=== PATIENT | male | born 1940 | race Caucasian/White ===

== ENCOUNTER → 2023-08-27 10:14 | Outpatient (REF) | payer MEDICARE, BC, SELFPAY ==
[2023-08-27 10:46] LABS: % Basophils 0.8 % (0-2); % Eosinophils 4.6 % (0-6); % Immature Granulocytes 0.2 % (0-0.5); % Lymphocytes 21.5 % (20.5-51.1); % Monocytes 9.1 % (1.7-9.3); % Neutrophils 63.8 % (42.2-75.2); Absolute Basophils 0.1 10^3/uL (0-0.2); Absolute Eosinophils 0.3 10^3/uL (0-0.7); Absolute Lymphocytes 1.3 10^3/uL (1.2-3.4); Absolute Monocytes 0.6 10^3/uL (0.1-0.6); Absolute Neutrophils 3.9 10^3/uL (1.4-6.5); Hematocrit 30.3 % (39.0-52.0); Hemoglobin 10.7 g/dL (13.0-18.0); Mean Corp Hgb Conc. 35.3 g/dL (33.0-37.0); Mean Corpuscular Hgb 33.8 pg (27.0-31.0); Mean Corpuscular Volume 95.6 fL (80.0-94.0); Mean Platelet Volume 9.6 fL (7.4-10.4); Nucleated Red Blood Cells % 0 % (-); Platelet Count 198 10^3/uL (130-400); Red Blood Cell Count 3.17 10^6/uL (4.70-6.10); Red Cell Dist. Width 11.8 % (11.5-14.5); White Blood Cell Count 6.2 10^3/uL (4.8-10.8)
[2023-08-27 11:12] LABS: ALT (SGPT) 21 U/L (0-50); AST (SGOT) 25 U/L (17-59); Albumin 3.5 g/dl (3.5-5.0); Alkaline Phosphatase 52 U/L (38-126); Blood Urea Nitrogen 7 mg/dl (9-20); Calcium 9.4 mg/dl (8.4-10.2); Carbon Dioxide 29 mmol/L (22-30); Chloride 100 mmol/L (98-107); Glucose 107 mg/dl (70-99); Potassium 4.4 mmol/L (3.5-5.1); Sodium 130 mmol/L (135-145); Total Bilirubin 0.6 mg/dl (0.2-1.3); Total Protein 6.3 g/dl (6.3-8.2); eGFR > 60.00
[2023-08-27 11:39] LABS: Testosterone, Total 49.9 ng/dl (72-623)
[2023-08-27 13:11] LABS: Glycohemoglobin (HgbA1c) 6.5 % (4.0-5.6)
== END ==
LOC: REG 10:14
PROVIDERS: ATTENDING PHYSICIAN Internal Medicine
DX: E10.39 Type 1 diabetes mellitus with other diabetic ophthalmic complication (principal); D64.9 Anemia, unspecified; C61 Malignant neoplasm of prostate
CPT/HCPCS: 36415; 80053; 83036; 84403; 85025

== ENCOUNTER → 2023-09-11 14:41 | Outpatient (REF) | payer MEDICARE, BC, SELFPAY ==
[2023-09-11 16:53] LABS: PSA, Total - Diagnostic < 0.06 ng/ml (0.0-4.0)
== END ==
LOC: REG 14:41
PROVIDERS: ATTENDING PHYSICIAN Radiology Radiation Oncology; FAMILY PHYSICIAN Internal Medicine
DX: C61 Malignant neoplasm of prostate (principal)
CPT/HCPCS: 36415; 84153

== ENCOUNTER → 2023-10-23 16:29 | Outpatient (REF) | payer MEDICARE, BC, SELFPAY | LOC: RAD 16:29 | PROVIDERS: ATTENDING PHYSICIAN Internal Medicine | DX: R05.1 Acute cough (principal); R09.89 Other specified symptoms and signs involving the circulatory and respiratory systems | CPT/HCPCS: 71046 ==

== ENCOUNTER → 2023-10-25 17:03 | Outpatient (REF) | payer MEDICARE, BC, SELFPAY | LOC: RAD 17:03 | PROVIDERS: ATTENDING PHYSICIAN Nurse Practitioner Adult Health | DX: M54.2 Cervicalgia (principal); W19.XXXD Unspecified fall, subsequent encounter | CPT/HCPCS: 72040 ==

== ENCOUNTER → 2023-12-31 07:55 | Outpatient (REF) | payer MEDICARE, BC, SELFPAY ==
[2023-12-31 09:03] LABS: % Basophils 0.6 % (0-2); % Eosinophils 7.4 % (0-6); % Immature Granulocytes 0.2 % (0-0.5); % Lymphocytes 31.9 % (20.5-51.1); % Monocytes 10.4 % (1.7-9.3); % Neutrophils 49.5 % (42.2-75.2); Absolute Eosinophils 0.4 10^3/uL (0-0.7); Absolute Lymphocytes 1.5 10^3/uL (1.2-3.4); Absolute Monocytes 0.5 10^3/uL (0.1-0.6); Absolute Neutrophils 2.3 10^3/uL (1.4-6.5); Hematocrit 30.7 % (39.0-52.0); Hemoglobin 10.9 g/dL (13.0-18.0); Mean Corp Hgb Conc. 35.5 g/dL (33.0-37.0); Mean Corpuscular Hgb 32.7 pg (27.0-31.0); Mean Corpuscular Volume 92.2 fL (80.0-94.0); Mean Platelet Volume 10.9 fL (7.4-10.4); Nucleated Red Blood Cells % 0 % (-); Platelet Count 161 10^3/uL (130-400); Red Blood Cell Count 3.33 10^6/uL (4.70-6.10); Red Cell Dist. Width 12.2 % (11.5-14.5); White Blood Cell Count 4.7 10^3/uL (4.8-10.8)
[2023-12-31 09:44] LABS: ALT (SGPT) 22 U/L (0-50); AST (SGOT) 26 U/L (17-59); Albumin 3.5 g/dl (3.5-5.0); Alkaline Phosphatase 58 U/L (38-126); Blood Urea Nitrogen 7 mg/dl (9-20); Carbon Dioxide 27 mmol/L (22-30); Chloride 97 mmol/L (98-107); Glucose 148 mg/dl (70-99); Potassium 4.7 mmol/L (3.5-5.1); Sodium 130 mmol/L (135-145); Total Bilirubin 0.5 mg/dl (0.2-1.3); Total Protein 6.4 g/dl (6.3-8.2); eGFR > 60.00
[2023-12-31 10:16] LABS: Glycohemoglobin (HgbA1c) 6.9 % (4.0-5.6)
== END ==
LOC: REG 07:55
PROVIDERS: ATTENDING PHYSICIAN Internal Medicine
DX: E10.39 Type 1 diabetes mellitus with other diabetic ophthalmic complication (principal); K22.719 Barrett's esophagus with dysplasia, unspecified; D64.9 Anemia, unspecified; C61 Malignant neoplasm of prostate
CPT/HCPCS: 36415; 80053; 83036; 85025

== ENCOUNTER → 2024-05-05 09:29 | Outpatient (REF) | payer MEDICARE, BC, SELFPAY ==
[2024-05-05 10:52] LABS: % Basophils 0.4 % (0-2); % Eosinophils 4.5 % (0-6); % Immature Granulocytes 0.4 % (0-0.5); % Lymphocytes 22.8 % (20.5-51.1); % Monocytes 9.8 % (1.7-9.3); % Neutrophils 62.1 % (42.2-75.2); Absolute Eosinophils 0.2 10^3/uL (0-0.7); Absolute Lymphocytes 1.2 10^3/uL (1.2-3.4); Absolute Monocytes 0.5 10^3/uL (0.1-0.6); Absolute Neutrophils 3.3 10^3/uL (1.4-6.5); Hematocrit 30.3 % (39.0-52.0); Hemoglobin 10.4 g/dL (13.0-18.0); Mean Corp Hgb Conc. 34.3 g/dL (33.0-37.0); Mean Corpuscular Hgb 31.9 pg (27.0-31.0); Mean Corpuscular Volume 92.9 fL (80.0-94.0); Nucleated Red Blood Cells % 0 % (-); Platelet Count 218 10^3/uL (130-400); Red Blood Cell Count 3.26 10^6/uL (4.70-6.10); Red Cell Dist. Width 12.5 % (11.5-14.5); White Blood Cell Count 5.3 10^3/uL (4.8-10.8)
[2024-05-05 11:35] LABS: Glycohemoglobin (HgbA1c) 6.5 % (4.0-5.6)
[2024-05-05 11:50] LABS: ALT (SGPT) 25 U/L (0-50); AST (SGOT) 26 U/L (17-59); Albumin 3.7 g/dl (3.5-5.0); Alkaline Phosphatase 45 U/L (38-126); Blood Urea Nitrogen 8 mg/dl (9-20); Calcium 9.9 mg/dl (8.4-10.2); Carbon Dioxide 30 mmol/L (22-30); Chloride 93 mmol/L (98-107); Glucose 135 mg/dl (70-99); HDL Cholesterol 55 mg/dl; LDL Cholesterol, Calculated 57 mg/dl; Potassium 4.8 mmol/L (3.5-5.1); Sodium 131 mmol/L (135-145); Total Bilirubin 0.3 mg/dl (0.2-1.3); Total Cholesterol 122 mg/dl (50-199); Total Protein 6.3 g/dl (6.3-8.2); Triglyceride 52 mg/dl (10-149); Very Low Density Lipoprotein 10 mg/dl (0-30); eGFR > 60.00
[2024-05-05 20:39] LABS: PSA, Total - Diagnostic < 0.06 ng/ml (0.0-4.0); TSH Reflex To Free T4 1.53 uIU/ml (0.47-4.68)
[2024-05-05 20:40] LABS: Testosterone, Total 77.8 ng/dl (72-623)
== END ==
LOC: REG 09:29
PROVIDERS: ATTENDING PHYSICIAN Radiology Radiation Oncology; FAMILY PHYSICIAN Internal Medicine; OTHER PHYSICIAN Internal Medicine Hematology & Oncology
DX: C61 Malignant neoplasm of prostate (principal); D64.9 Anemia, unspecified; Z85.46 Personal history of malignant neoplasm of prostate; Z85.51 Personal history of malignant neoplasm of bladder; K59.00 Constipation, unspecified; R53.83 Other fatigue; E10.39 Type 1 diabetes mellitus with other diabetic ophthalmic complication; K22.719 Barrett's esophagus with dysplasia, unspecified; I25.10 Atherosclerotic heart disease of native coronary artery without angina pectoris; R79.89 Other specified abnormal findings of blood chemistry
CPT/HCPCS: 36415; 80053; 80061; 83036; 84153; 84403; 84443; 85025

== ENCOUNTER → 2024-05-07 12:49 | Outpatient (REF) | payer MEDICARE, BC, SELFPAY | LOC: RAD 12:49 | PROVIDERS: ATTENDING PHYSICIAN Surgery; FAMILY PHYSICIAN Internal Medicine | DX: C67.0 Malignant neoplasm of trigone of bladder (principal) | CPT/HCPCS: 76770 ==

== ENCOUNTER → 2024-12-25 10:13 | Outpatient (REF) | payer MEDICARE, BC, SELFPAY ==
[2024-12-25 11:17] LABS: % Basophils 0.6 % (0-2); % Eosinophils 2.6 % (0-6); % Immature Granulocytes 0.1 % (0-0.5); % Lymphocytes 21.2 % (20.5-51.1); % Monocytes 11.3 % (1.7-9.3); % Neutrophils 64.2 % (42.2-75.2); Absolute Eosinophils 0.2 10^3/uL (0-0.7); Absolute Lymphocytes 1.5 10^3/uL (1.2-3.4); Absolute Monocytes 0.8 10^3/uL (0.1-0.6); Absolute Neutrophils 4.5 10^3/uL (1.4-6.5); Hemoglobin 11.1 g/dL (13.0-18.0); Mean Corp Hgb Conc. 35.8 g/dL (33.0-37.0); Mean Corpuscular Hgb 33.5 pg (27.0-31.0); Mean Corpuscular Volume 93.7 fL (80.0-94.0); Mean Platelet Volume 9.9 fL (7.4-10.4); Nucleated Red Blood Cells % 0 % (-); Platelet Count 249 10^3/uL (130-400); Red Blood Cell Count 3.31 10^6/uL (4.70-6.10); Red Cell Dist. Width 11.8 % (11.5-14.5)
[2024-12-25 11:50] LABS: ALT (SGPT) 23 U/L (0-50); AST (SGOT) 28 U/L (17-59); Albumin 3.8 g/dl (3.5-5.0); Alkaline Phosphatase 45 U/L (38-126); Blood Urea Nitrogen 7 mg/dl (9-20); Calcium 9.9 mg/dl (8.4-10.2); Carbon Dioxide 29 mmol/L (22-30); Chloride 96 mmol/L (98-107); Glucose 109 mg/dl (70-99); Potassium 3.9 mmol/L (3.5-5.1); Sodium 129 mmol/L (135-145); Total Bilirubin 0.6 mg/dl (0.2-1.3); Total Protein 6.4 g/dl (6.3-8.2); eGFR > 60.00
[2024-12-25 12:17] LABS: TSH Reflex To Free T4 1.71 uIU/ml (0.47-4.68)
[2024-12-25 12:28] LABS: Glycohemoglobin (HgbA1c) 6.4 % (4.0-5.6)
[2024-12-25 16:26] LABS: Folate 9.5 ng/ml (2.76-20); Vitamin B12 > 1000 pg/ml (239-931)
== END ==
LOC: REG 10:13
PROVIDERS: ATTENDING PHYSICIAN Internal Medicine; OTHER PHYSICIAN Internal Medicine; OTHER PHYSICIAN Internal Medicine Cardiovascular Disease
DX: E10.39 Type 1 diabetes mellitus with other diabetic ophthalmic complication (principal); R43.2 Parageusia; R63.4 Abnormal weight loss; D53.8 Other specified nutritional anemias; F03.90 Unspecified dementia, unspecified severity, without behavioral disturbance, psychotic disturbance, mood disturbance, and anxiety
CPT/HCPCS: 36415; 80053; 82607; 82746; 83036; 84443; 85025

== ENCOUNTER 2024-12-29 15:39 | Emergency (ER) | payer MEDICARE, BC, SELFPAY ==
[2024-12-29 15:42] VITALS: BP 106/57
[2024-12-29 16:03] LABS: % Basophils 0.4 % (0-2); % Eosinophils 0.8 % (0-6); % Immature Granulocytes 0.4 % (0-0.5); % Lymphocytes 14.4 % (20.5-51.1); % Monocytes 9.4 % (1.7-9.3); % Neutrophils 74.6 % (42.2-75.2); Absolute Eosinophils 0.1 10^3/uL (0-0.7); Absolute Monocytes 0.7 10^3/uL (0.1-0.6); Absolute Neutrophils 5.3 10^3/uL (1.4-6.5); Hematocrit 30.5 % (39.0-52.0); Mean Corp Hgb Conc. 36.1 g/dL (33.0-37.0); Mean Corpuscular Hgb 33.8 pg (27.0-31.0); Mean Corpuscular Volume 93.8 fL (80.0-94.0); Mean Platelet Volume 9.4 fL (7.4-10.4); Nucleated Red Blood Cells % 0 % (-); Platelet Count 240 10^3/uL (130-400); Red Blood Cell Count 3.25 10^6/uL (4.70-6.10); Red Cell Dist. Width 11.8 % (11.5-14.5); White Blood Cell Count 7.1 10^3/uL (4.8-10.8)
[2024-12-29 16:19] LABS: ALT (SGPT) 27 U/L (0-50); AST (SGOT) 25 U/L (17-59); Albumin 3.9 g/dl (3.5-5.0); Alkaline Phosphatase 48 U/L (38-126); Blood Urea Nitrogen 12 mg/dl (9-20); Calcium 9.8 mg/dl (8.4-10.2); Carbon Dioxide 30 mmol/L (22-30); Chloride 91 mmol/L (98-107); Glucose 217 mg/dl (70-99); Potassium 3.9 mmol/L (3.5-5.1); Sodium 127 mmol/L (135-145); Total Bilirubin 0.7 mg/dl (0.2-1.3); Total Protein 6.5 g/dl (6.3-8.2); eGFR > 60.00
[2024-12-29 16:20] LABS: Lipase 56 U/L (23-300)
--- NOTE | 2024-12-29 17:22 | ED.GENMED ---
History of Present Illness
General
Chief Complaint: Failure to Thrive
Source: patient and family
Exam Limitations: none
Time Seen by Provider: 12/29/24 16:56
History of Present Illness
History of Present Illness:
84yoM with a history of coronary artery disease, insulin dependent diabetes, hypertension, hyperlipidemia, Serrano's esophagus presenting for evaluation of multiple complaints. Patient's daughter in September of this year. This is his second
daughter that within the past 2 years. He has had a decline in health over the past 3 months since this occurred. states he is not eating as much and has lost about 15 pounds. Patient reports that food does not taste the same
anymore. He has also been experiencing abdominal discomfort and belching. states he will moan intermittently reporting abdominal pain. He has also been less active. He works with PT twice weekly and seemed to be more weak today during his
session. He was seen by his PCP last week and was told that his blood work looked good. is worried that he may have dementia.
Past History
Past History
ED Past Medical History: HTN, Hypercholesterolemia, IDDM and [place]
ED Past Surgical History: Cardiac and Other
Patient has exhibited threatening behavior?: No
Social History
Tobacco: Former smoker
Alcohol: None
Drug: None
Personal:
Living: with family
Employment: Retired
Phy Exam
General Physical Exam
General Presentation: well appearing and no apparent distress
General Skin: warm and dry
General Habitus: normal and elderly
General Mental: alert
Cardiovascular Exam
Cardiovascular Exam: regular rate/rhythm
Pulmonary Exam
Pulmonary Exam: lungs clear, no respiratory distress, no rales, no crackles, no rhonchi and no wheezing
Gastrointestinal Exam
Gastrointestinal Exam: non tender, soft and non distended
Neurological Exam
Neurological Exam: alert
Issa Coma Scale
Eye Opening: Spontaneous
Verbal Response: Oriented
Motor Response: Obeys Commands
GCS Total Score: 15
Skin Exam
Skin Exam: normal color and warm/dry
Psychiatric Exam
Psychiatric Exam: normal mood/affect
Course
Orders/Labs/Results
Orders:
Orders
12/29/24 15:48
Complete Blood Count/With Diff Urgent
Comprehensive Metabolic Panel Urgent
Lipase Urgent
TSH Urgent
Comment: ADD ON
12/29/24 17:16
Add On- LAB Urgent
Tests Added?: TSH
CT Abd/pelvis W Iv Cont Urgent
Comment:
Reason For Exam: abd pain, weight loss
CT Head W/o Iv Contrast Urgent
Comment:
Reason For Exam: weakness
Abnormal Lab Results
12/29/24
15:48
RBC 3.25 L 10^6/uL
(4.70-6.10)
Hgb 11.0 L g/dL
(13.0-18.0)
Hct 30.5 L %
(39.0-52.0)
MCH 33.8 H pg
(27.0-31.0)
Absolute Lymphs (auto) 1.0 L 10^3/uL
(1.2-3.4)
Absolute Monos (auto) 0.7 H 10^3/uL
(0.1-0.6)
Lymphocytes % 14.4 L %
(20.5-51.1)
Monocytes % 9.4 H %
(1.7-9.3)
Sodium 127 L mmol/L
(135-145)
Chloride 91 L mmol/L
(98-107)
Creatinine 0.6 L mg/dL
(0.7-1.3)
Glucose 217 H mg/dl
(70-99)
12/29/24 15:48
12/29/24 15:48
Vital Signs
Initial and Last Documented VS:
Initial Vital Signs
Temp Pulse Resp BP Pulse Ox
98.0 F 80 20 106/57 98
12/29/24 15:42 12/29/24 15:42 12/29/24 15:42 12/29/24 15:42 12/29/24 15:42
Last Documented Vital Signs
Temp Pulse Resp BP Pulse Ox
98.0 F 82 21 166/75 98
12/29/24 15:42 12/29/24 20:30 12/29/24 20:30 12/29/24 20:00 12/29/24 20:00
MDM/Problems Addressed
Differential Diagnosis Includes:
84yoM here with multiple complaints including abd pain, belching, weight loss, decreased activity level x 3 months. Seems to be worse since his daughter . VSS. He is well appearing in no distress. No signs of peritonitis on abdominal exam.
Differential diagnosis includes but is not limited to: failure to thrive, depression, malignancy, symptoms related to his Serrano's esophagus
Initial ED plan: Labs obtained in triage. Sodium is 127 which is chronic per review of prior labs. Renal function normal. Will check TSH, CT head, and CT abdomen.
*Pulse Oximetry
Patient hypoxic: no (98%)
*Critical Care Note
Total Time (30-74mins, 75-104mins- exclusive of procedures): Not Applicable
Update Note
Update Note:
TSH is within normal limits. CT abdomen shows constipation but otherwise negative for acute findings. 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
characterization. 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 He sees an overnight houseperson every few months and receives injections in the eye to 'burn the nerves' to help with pain. No known mass. Radiology report given to
patient and he was advised to f/u with his PCP and overnight houseperson tomorrow. No indication for hospitalization and he was discharged in stable condition.
ED Attending Note
-
Portions of this chart may have been created with voice recognition software.� Occasional wrong word or��sound alike� substitutions may have occurred due to the inherent limitations of voice recognition software.
Discharge Plan
Departure
Patient Disposition: Home (Routine Discharge)
Date of Disposition: 12/29/24
Time of Disposition: 20:41
Patient with high blood pressure during this ER visit?: Yes
Discharge Problem:
Loss of appetite, Constipation, Mass of orbit
Instructions: Constipation in adults - ED discharge instructions
Prescriptions:
No Action
carvedilol 3.125 MG tablet
3.125 mg PO BID
Insulin Pump [Patient's Own Insulin Pump:] 1 UNITS Pump.Resvr
0 ea SC .CONTINUOUS Qty: 0
Patient Comments:
REFILL Q 3 DAYS - WILL BRING IN EQUIPMENT. PT USES HUMALOG
latanoprost 1 DROP drops
1 drp BOTH EYES HS Qty: 0
atorvastatin 40 MG tablet
80 mg PO QPM
ascorbic acid (vitamin C) [Vitamin C] 500 MG tablet
1,000 mg PO BID
omeprazole [Prilosec] 20 MG capsule,delayed release(DR/EC)
20 mg PO BID
fish,bora,flax oils-om3,6,9no1 [[place] 3-6-9 Complex] 400 MG capsule
1 ea PO BID
docusate sodium 100 MG capsule
100 mg PO BID
Lactobac 2-Bifido 1-S. therm [High Potency Probiotic] 1 CAP capsule
1 cap PO DAILY
multivitamin with folic acid [Tab-A-Russel] 1 TABLET tablet
1 tab PO DAILY
Coq10
1 cap PO DAILY
Ultimate Colon Care
1 cap PO BID
Vitamin B12
1 tab PO DAILY
cetirizine 10 MG tablet
10 mg PO DAILYPRN PRN (Reason: allergies)
losartan 25 MG tablet
12.5 mg PO DAILY
tamsulosin 0.4 MG capsule
0.4 mg PO HS
dorzolamide-timolol 1 DROP drops
1 drp LEFT EYE BID
finasteride 5 MG tablet
5 mg PO DAILY
sodium chloride 1 GM tablet
0.5 gm PO BID Qty: 60 0RF
furosemide 20 MG tablet
20 mg PO DAILY Qty: 30 0RF
finasteride 5 MG tablet
5 mg PO DAILY
Magnesium 250 MG Tablet
250 mg PO DAILY
clopidogrel 75 MG tablet
75 mg PO DAILY Qty: 30 2RF
calcium carbonate [Oyster Shell Calcium 500] 500 MG tablet
500 mg PO DAILY 0RF
aspirin 81 MG tablet,chewable
81 mg PO DAILY 0RF
insulin glargine [Lantus Solostar U-100 Insulin] 300 UNITS/3 ML insulin pen
20 units SC HS Qty: 1 0RF
(DME) pen needle, diabetic [Unifine Pentips] 1 EACH needle
1 ea SC QID Qty: 60 0RF
insulin aspart U-100 [Novolog FlexPen U-100 Insulin] 300 UNITS/3 ML insulin pen
9 units SC AC Qty: 1 0RF
Referrals:
Nadine Wilson NP [Family Provider, Internal Medicine]
Activity Restrictions/Additional Instructions:
Take MiraLAX daily as needed for constipation. You may also take Metamucil.
You will need an MRI of your orbits for the possible mass seen on today's CT scan.
Please call your family doctor tomorrow for close follow-up. Return to the ER with any new or worsening symptoms.
Interventions
Interventions:
*Risk Screen - Suicide Last Done: 12/29/24 18:37
*General Assessment Last Done: 12/29/24 15:42
*Neglect/Abuse Screening Last Done: 12/29/24 18:37
*ED- Fall Risk Assessment Last Done: 12/29/24 18:37
*ED COVID-19 Vaccine History Last Done: 12/29/24 18:37
*Nursing Disposition Last Done: 12/29/24 21:05
Discharge Date and Time
Discharge Date/Time: 12/29/24 21:07
Print Language: GUAMANIAN
[2024-12-29 18:13] VITALS: BP 140/79
[2024-12-29 19:00] VITALS: BP 150/76
[2024-12-29 19:58] LABS: TSH 1.76 uIU/ml (0.47-4.68)
[2024-12-29 20:00] VITALS: BP 166/75
== END 2024-12-29 21:07 | disposition home or self-care (01) ==
LOC: EMR 15:39
PROVIDERS: Emergency Medicine; EMERGENCY PHYSICIAN Emergency Medicine; FAMILY PHYSICIAN Internal Medicine
DX: R63.0 Anorexia (principal); K59.00 Constipation, unspecified; R22.0 Localized swelling, mass and lump, head; I10 Essential (primary) hypertension; I25.10 Atherosclerotic heart disease of native coronary artery without angina pectoris; E11.9 Type 2 diabetes mellitus without complications; E78.00 Pure hypercholesterolemia, unspecified; Z87.891 Personal history of nicotine dependence
CPT/HCPCS: 99285; 70450; 74177; 80053; 83690; 84443; 85025; Q9967

== ENCOUNTER 2025-01-20 16:08 | Inpatient (IN) | payer MEDICARE, BC, SELFPAY ==
[2025-01-20] VITALS (9 sets, daily range): BP systolic 140–179; BP diastolic 65–94; BMI 24.2; BMI 22.2
[2025-01-20 11:30] LABS: Hematocrit 32.0 % (39.0-52.0); Hemoglobin 11.8 g/dL (13.0-18.0); Mean Corp Hgb Conc. 36.9 g/dL (33.0-37.0); Mean Corpuscular Volume 91.7 fL (80.0-94.0); Nucleated Red Blood Cells % 0 % (-); Platelet Count 228 10^3/uL (130-400); Red Cell Dist. Width 12.0 % (11.5-14.5)
[2025-01-20 11:56] LABS: ALT (SGPT) 24 U/L (0-50); AST (SGOT) 30 U/L (17-59); Albumin 3.5 g/dl (3.5-5.0); Alkaline Phosphatase 56 U/L (38-126); Blood Urea Nitrogen 8 mg/dl (9-20); Calcium 9.6 mg/dl (8.4-10.2); Carbon Dioxide 36 mmol/L (22-30); Chloride 88 mmol/L (98-107); Glucose 147 mg/dl (70-99); Potassium 2.7 mmol/L (3.5-5.1); Sodium 126 mmol/L (135-145); Total Protein 6.3 g/dl (6.3-8.2); eGFR > 60.00
[2025-01-20 12:15] LABS: Lipase 31 U/L (23-300)
[2025-01-20 13:14] LABS: Magnesium 1.6 mg/dl (1.6-2.3)
[2025-01-20] MEDS: NSS 500 IV (13:16)
--- NOTE | 2025-01-20 14:00 | ED.GENMED ---
History of Present Illness
General
Chief Complaint: Weakness
Source: patient and family
Exam Limitations: clinical condition and dementia
Time Seen by Provider: 01/20/25 12:32
Nursing documentation reviewed up to this point in time: agreed with
History of Present Illness
History of Present Illness:
pt is a 84 y/o M IDDM, CAD, carotid stenossi, dementia
fro home via EMS
pt is poor historian
was here 3 weeks ago for abd pain/bloating
found to have constipation and gallstones
he went home and has gradually declined since
not really getting up much, needing more help, no appetite, when he eats, he has pain in his abdomen
pt's said that he has likely lot weight
he is chronically blind
no cp, sob, fever, urinary symptoms
pt is on lasix and is not on potassium
he is chronically hyponatremic
Past History
Past History
ED Past Medical History: HTN, Hypercholesterolemia, IDDM and [place]
ED Past Surgical History: Cardiac and Other
Patient has exhibited threatening behavior?: No
Social History
Tobacco: Former smoker
Alcohol: None
Drug: None
Personal:
Living: with family
Employment: Retired
Review of Systems
Review of Systems
Allergies reviewed?: Yes
All Other Systems: Not applicable
Phy Exam
Physical Exam
Physical Exam:
GENERAL: Alert , in no apparent distress; generally weak
EYE: blind
NECK: Supple
ENT: o/p clr, mmm.
CARDIAC: Regular rate and rhythm .no edema
LUNGS: Clear breath sounds bilaterally, no acute respiratory distress, no wheezes/rales/rhonchi
ABDOMEN: Soft, mild bloating; insulin pump and dexcom in place; nontender, normal bowel sounds; no masses
NEUROLOGICAL: Alert and oriented, no focal neuro deficits,
SKIN: Warm and dry, skin intact.
MUSCULOSKELETAL: No edema, well perfused. neg colleen's sign
PSYCH: Normal and appropriate interaction.
Course
Orders/Labs/Results
Orders:
Orders
01/20/25 11:13
Electrocardiogram (*1) Urgent
Reason for Study: Abdominal Pain
EKG- Treatment ONCE
01/20/25 11:17
Complete Blood Count/With Diff Urgent
Comprehensive Metabolic Panel Urgent
Lipase Urgent
Magnesium Urgent
Comment: ADD ON
01/20/25 13:06
0.9% Sodium Chloride 500 ml [Nss] 500 ml IV BOLUS
Obstruct Series W/PA Chest [CR Obstruct Series W/pa Chest] Urgent
Comment:
Reason For Exam: abd bloating, pain after eating
US Abdomen Complete/Upper Urgent
Comment:
Reason For Exam: gallstones, pain after eating
01/20/25 13:48
Potassium Chloride [KCl] 20 meq PO NOW STA
01/20/25 13:53
Potassium Chloride [KCl] 20 meq 0.9% Sodium Chloride 150 ml [Nss] 150 ml IV NOW
01/20/25 Dinner
NPO
Allow oral meds: Yes
Allow clear liquids: Sips of Clears
NPO with Ice Chips: Yes
01/20/25 15:31
Magnesium Sulfate 1 grams 0.9% Sodium Chloride 100 ml [Nss] 100 ml IV NOW
01/20/25 15:45
Admit/Transfer Patient As Directed
Co-Sign Provider:
Level of Care: Inpatient admission
Assign to:: Medical/Surgical
Physician / Group: Jono Brown
Diagnosis: Cholelithiasis, hypokalemia
Reason for Hospitalization: Cholelithiasis, hypokalemia
Expected length of stay greater than two midnights?: Yes
ELOS- Estimated Length of Stay in days: 3
I certify the patient meets the requirements for IP care: Yes
PRN Pain Medication Management As Directed
May give lesser potent ordered pain med per pt: Yes
preference::
Protocol:: Medication orders for pain may be administered in a
manner that supports deferring to patient preference
when the pt is:
- Requesting an ordered lesser potent pain medication.
Least to most potent pain medications are defined
as: acetaminophen < NSAID < tramadol < opioids
(morphine, oxycodone, hydromorphone).
- Requesting a lesser dose of the same medication IF
ORDERED.
- Requesting a less intrusive route of administration
if both routes are prescribed by the provider (PO <
IV).
01/20/25 15:47
Code Status As Directed
Resuscitation Status: Full Code
01/20/25 18:18
0.9% Sodium Chloride 1000 ml [Nss] 1,000 ml IV 80 mls/hr
Acetaminophen [Tylenol] 650 mg PO Q4HPRN PRN
HYDROmorphone [Dilaudid] 0.5 mg IV Q4HPRN PRN
Ondansetron Injectable [Zofran] 4 mg IV Q6HPRN PRN
01/20/25 18:18
Diabetes Management by Nurse Practitioner Routine
Consulting Provider: Juhi Cortez
Was provider already notified?: Yes
Reason for Consult: Insulin Management
SURGICAL CONSULT Routine
Consulting Provider: Gianfranco Silvestre
Was physician already notified: Yes
Activity As Directed
Activity Level: As Tolerated
Pneumatic Compression Sleeves As Directed
Type: Knee high
Vital Signs As Directed
Frequency: Per unit guidelines
Weight As Directed
Frequency: Once
Comment: on admission
PT Consult [Pt Eval And Treat] Routine
Activity Level: As Tolerated
DX Deep Vein Thrombosis Video Routine
01/20/25 20:00
Carvedilol [Coreg] 3.125 mg PO BID
Dorzolamide HCl [Trusopt 2% Ophthalmic Solution] See Dose Instructions LEFT EYE BID
Pantoprazole [Protonix] 40 mg PO BID
01/20/25 21:13
Potassium Routine
01/20/25 22:00
Latanoprost [Xalatan Ophthalmic Solution] See Dose Instructions BOTH EYES HS
Sodium Chloride 1 gram PO TID
Tamsulosin [Flomax] 0.4 mg PO HS
azelastine 2 spray NASAL HS
01/21/25 05:56
Basic Metabolic Panel IN AM
Complete Blood Count/No Diff IN AM
Magnesium IN AM
01/21/25 08:00
Aspirin Chewable [Low Strength Aspirin] 81 mg PO DAILY
Atorvastatin [Lipitor] 80 mg PO DAILY
Bupropion(24Hr)Extended Releas [WELLBUTRIN XL (24 hour extended release)] 150 mg PO DAILY
Finasteride [Proscar] 5 mg PO DAILY
Losartan [Cozaar] 12.5 mg PO DAILY
Multivitamin [Theragran] 1 tablet PO DAILY
fluticasone propionate 2 spray NASAL DAILY
Abnormal Lab Results
01/20/25
11:17
RBC 3.49 L 10^6/uL
(4.70-6.10)
Hgb 11.8 L g/dL
(13.0-18.0)
Hct 32.0 L %
(39.0-52.0)
MCH 33.8 H pg
(27.0-31.0)
Absolute Lymphs (auto) 1.1 L 10^3/uL
(1.2-3.4)
Lymphocytes % 16.4 L %
(20.5-51.1)
Monocytes % 9.4 H %
(1.7-9.3)
Sodium 126 L mmol/L
(135-145)
Potassium 2.7 L* mmol/L
(3.5-5.1)
Chloride 88 L mmol/L
(98-107)
Carbon Dioxide 36 H mmol/L
(22-30)
BUN 8 L mg/dl
(9-20)
Creatinine 0.5 L mg/dL
(0.7-1.3)
Glucose 147 H mg/dl
(70-99)
01/20/25 11:17
01/20/25 11:17
Vital Signs
Initial and Last Documented VS:
Initial Vital Signs
Temp Pulse Resp BP Pulse Ox
36.6 C 69 16 148/70 98
01/20/25 11:09 01/20/25 11:09 01/20/25 11:09 01/20/25 11:09 01/20/25 11:09
Last Documented Vital Signs
Temp Pulse Resp BP Pulse Ox
36.6 C 86 18 138/75 96
01/21/25 15:46 01/21/25 19:29 01/21/25 15:46 01/21/25 19:29 01/21/25 15:46
MDM/Problems Addressed
Differential Diagnosis Includes:
failure to thrive, weakness, constipation, symptomatic cholelithiasis
MDM/Problems Addressed:
84 y/o M
3 weeks decining, not eating well, not really as active per
primary historian who is not here but i called her
he has likely had weight loss
takes lasix
on exam pt awake, alert
blind
some abd distension, feels like air, no tenderness, not firm
na chroincally low
but potassium 2.7 now
no significant ekg chnages
mag normal
k repletion ordered
US of RUQ due to pain with eating/nausea/lack of appetite inthe setting of known gallstones
will admit for K repletion; suspect pt has symptoatmic choleilthiasis
*Pulse Oximetry
SaO2: 97
Oxygen Mode of Delivery: Room air
Patient hypoxic: no (96)
*Critical Care Note
Total Time (30-74mins, 75-104mins- exclusive of procedures): Not Applicable
ED Attending Note
-
Portions of this chart may have been created with voice recognition software.� Occasional wrong word or��sound alike� substitutions may have occurred due to the inherent limitations of voice recognition software.
Discharge Plan
Departure
Patient Disposition: Admit
Date of Disposition: 01/20/25
Time of Disposition: 15:05
Admit to: Telemetry
Presentation/result/management discussed w/ accepting MD/DO: Hospitalist
Condition: Fair
Covid-19: Not Applicable
Discharge Problem:
Hypokalemia
Interventions
Interventions:
*Risk Screen - Suicide Last Done: 01/20/25 11:09
*General Assessment Last Done: 01/20/25 15:00
*Neglect/Abuse Screening Last Done: 01/20/25 11:09
*ED- Fall Risk Assessment Last Done: 01/20/25 15:00
*ED COVID-19 Vaccine History Last Done: 01/20/25 15:00
*Nursing Disposition Last Done: 01/20/25 18:09
ED- Cardiac Assessment Last Done: 01/20/25 14:59
ED- Neurological Assessment Last Done: 01/20/25 14:59
ED- Pulmonary Assessment Last Done: 01/20/25 14:59
Discharge Date and Time
Discharge Date/Time: 01/20/25 18:11
[2025-01-20] MEDS: KCL 20 MEQ PO (14:54)
[2025-01-20] MEDS: KCL 160 MEQ IV (14:55)
--- NOTE | 2025-01-20 15:14 | HPS.HSE ---
Family Physician
-
Family Physician: INTERVIEWE UNKNOWN - PT NOT
Chief Complaint
-
abdominal discomfort/bloating
History of Present Illness
Patient is a 84-year-old male with past medical history significant for hypertension, hyperlipidemia, ASCVD, DM I, BPH and anxiety/depression who presented to [facility] ED for evaluation of abdominal bloating, decreased PO intake and weight loss.
Patients reported that that has abdominal pain and bloating for approximately 3 weeks. She reports weight loss, decreased appetite with weight loss and patient being less active than baseline. Denies fever, chills, cough, shortness of breath,
chest pain or urinary symptoms.
Medical History
Past Medical History
Past Medical History: Reports Other
Additional Past Medical History:
hypertension
hyperlipidemia
ASCVD
DM I
BPH
anxiety/depression
Serrano's esophagus
Hx hyponatremia
Hx prostate cancer
Past Surgical History: Reports Other
Additional Past Surgical History:
laser surgery lt eye(2008)
retina detachment repair(2004)
skin CA (neck)
Angioplasty
cyst in back removed(1984)
mastoidectomy R ear(2009)
Herniated disc repair(2005)
stent in LCX(1988)
percutaneous transluminal balloon angioplasty with insertion of stent into coronary artery(1997)
bilateral cataract extraction
TURBT 05/2019
Open umbilical hernia repair with mesh (pellini) 03/25/2020
cath with stent placement 11/2021
Social History
Tobacco: Non-smoker
Alcohol: None
Personal:
Living: With Family
Family History
Family History: Not pertinent
Allergies / Home Medications
Allergies reflects when Allergies were last updated in [employer].
Home Medications with original date entered in [employer]
Allergy/Medication List:
Allergies
Allergy/AdvReac Type Severity Reaction Status Date / Time
Cephalosporins Allergy Unknown Verified 01/20/25 11:09
Home Medications
Insulin Pump [Patient's Own Insulin Pump:] 0 ea SC .CONTINUOUS Diabetes ##0 02/10/08
carvedilol 3.125 mg tablet 3.125 mg PO BID Blood pressure 02/10/08
latanoprost 0.005 % eye drops 1 drp BOTH EYES HS Eye condition ##0 08/19/13
ascorbic acid (vitamin C) 500 mg tablet (Vitamin C) 1,000 mg PO BID Supplement 04/26/15
fish,borage,flaxseed oil-omega 3,6,9 no.1 400 mg-400 mg-400 mg capsule ([place] 3-6-9 Complex) 1 ea PO TID Supplement 04/26/15
Lactobac no.2-Bifidobac no.1-S. thermo 112.5 billion cell capsule (High Potency Probiotic) 1 cap PO DAILY Gastrointestinal issue 03/24/20
multivitamin with folic acid 400 mcg tablet (Tab-A-Russel) 1 tab PO DAILY Supplement 03/24/20
dorzolamide 22.3 mg-timolol 6.8 mg/mL eye drops 1 drp LEFT EYE BID Eye condition 05/10/21
losartan 25 mg tablet 12.5 mg PO DAILY Blood pressure 05/10/21
tamsulosin 0.4 mg capsule 0.4 mg PO HS Urinary issue 05/10/21
sodium chloride 1 gram tablet 0.5 gm PO BID #60 tabs 05/12/21
Magnesium 500 mg PO DAILY Supplement 11/12/21
finasteride 5 mg tablet 5 mg PO DAILY Urinary issue 11/12/21
aspirin 81 mg chewable tablet 81 mg PO DAILY Blood Clot Prevention/Tx 01/20/25
atorvastatin 80 mg tablet 80 mg PO DAILY High Cholesterol 01/20/25
azelastine 137 mcg (0.1 %) nasal spray 2 spray intranasal HS Allergies 01/20/25
bupropion HCl 150 mg 24 hr tablet, extended release 150 mg PO DAILY Mental Health/Anxiety 01/20/25
calcium carbonate (Oyster Shell Calcium 500) 1,000 mg PO DAILY Supplement 01/20/25
cholecalciferol (vitamin D3) 25 mcg (1,000 unit) capsule (Vitamin D3) 25 mcg PO DAILY Supplement 01/20/25
fluticasone propionate 50 mcg/actuation nasal spray,suspension 2 spray intranasal DAILY Allergies 01/20/25
furosemide 40 mg tablet 40 mg PO DAILY Fluid Retention/Swelling 01/20/25
pantoprazole 40 mg tablet,delayed release 40 mg PO BID Gastrointestinal Issue 01/20/25
Review of Systems
-
History Source: Patient and Family
Constitutional: Reports Fatigue
Abdomen/GI: Reports Abdominal Pain, Anorexia and Other (bloating )
Physical Exam
Vital Signs
Vital Signs
Temp Pulse Resp BP Pulse Ox
98 F 70 10 179/79 98
01/20/25 11:09 01/20/25 15:00 01/20/25 15:00 01/20/25 15:00 01/20/25 15:00
Physical Exam
General: Well Developed, Well Nourished, No Apparent Distress and Conversant
HEENT: NormoCephalic, Moist mucous membranes, Atraumatic and Hearing Impaired
Respiratory: Clear and Non Labored Respirations
Cardiac: S1/S2 and Regular Rhythm
Breast: Deferred by me
GI: Soft, Non Tender, Normal Bowel Sounds and Other (dexcom insulin pump )
Rectal: Deferred by Provider
Genito-urinary: Deferred by me
Musculoskeletal: No Clubbing, No Cyanosis and No Edema
Skin: Warm and IV/Catheter Site
Neuro: Awake, AO x 3 and Nonfocal/grossly intact
Psych: Calm
Laboratory Results
-
01/20/25 11:17
01/20/25 11:17
Laboratory Results
Total Bilirubin 0.9 mg/dl (0.2-1.3) 01/20/25 11:17
AST 30 U/L (17-59) 01/20/25 11:17
ALT 24 U/L (0-50) 01/20/25 11:17
Alkaline Phosphatase 56 U/L (38-126) 01/20/25 11:17
Lipase 31 U/L (23-300) 01/20/25 11:17
Data Reviewed
-
Ultrasound: Report Reviewed by me (Abd: Cholelithiasis. There is also slight within the gallbladder. Gallbladder is distended with no evidence for gallbladder wall thickening or pericholecystic edema. Negative sonographic Purdy's sign. There is no
evidence for biliary ductal dilation. The spleen, pancreas, upper abdominal aorta, a)
Medical Tests (Nuc Med, Echo, EKG etc): Report Reviewed by me (EKG: NORMAL SINUS RHYTHM POSSIBLE INFERIOR INFARCT (CITED ON OR BEFORE 15-NOV-2021))
Lab Data: Labs Reviewed by me (Na+ 126, K+ 2.7, Chloride 88, HCO3 36)
Impression/Plan
-
IMPRESSION/PLAN:
#Cholelithiasis
Na+ 126, K+ 2.7, Chloride 88, HCO3 36
Abd US: Cholelithiasis. There is also slight within the gallbladder. Gallbladder is distended with no evidence for gallbladder wall thickening or pericholecystic edema. Negative sonographic Purdy's sign.
There is no evidence for biliary ductal dilation.
The spleen, pancreas, upper abdominal aorta, and upper abdominal IVC are unable to be adequately visualized.
- Admit to med/surg
- Consult Surgery
- IVF NS 80cc/hr
- hold off on antibiotics for now
- pain regimen
#hypokalemia
#hyponatremia
Na+ 126, K+ 2.7, Mag 1.6
- repleted K+ in ED
- Na+ slightly below baseline
- continue sodium chloride
- gave Magnesium 1gm in ED
- follow BMP and replete electrolytes as indicated
#hypertension
- continue carvedilol and losartan
#hyperlipidemia
#ASCVD
- continue aspirin and atorvastatin
#DM I
- consult diabetic VOLUNTEER SPECIALIST
- patients own insulin pump
#BPH
- continue finasteride and tamsulosin
#anxiety/depression
- continue bupropion
#GERD
- continue pantoprazole
Code status: full code
DVT prophylaxis: SCDs
--- NOTE | 2025-01-20 15:38 | W.PN.UPDATE ---
Update Note
Progress Note Update
HPI
84 Former smoker , legally blind, Inulin pump, IDDM, CAD, [place], HLD, carotid stenosis, chr hyponatremia fro home via EMS:
- seen at ER 3 weeks ago for abd pain/bloating DX: constipation and gallstones
- abdominal pain exacerbated by eating
- went home and has gradually declined since
- no appetite
ROS
NO cp, sob, fever, urinary symptoms
Vital Signs
Temp Pulse Resp BP Pulse Ox
98 F 70 10 179/79 98
01/20/25 11:09 01/20/25 15:00 01/20/25 15:00 01/20/25 15:00 01/20/25 15:00
PE
Gen: Not toxic
HEENT: anicteric
Neck: supple
Lungs: CTA
Cor: RRR S1 S2
Abdomen: soft mild bloating; insulin pump and dexcom in place; nontender, normal bowel sounds; no masses
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
Psych: appropriate interaction.
Relevant Data
Nl WCC
Hgb 11.8 at somewhat higher than baseline
Na 126 - chronic
K 2.7 IV KCL 20 Rembert pus + 20 PO K given
Cr 0.5
eGFR > 60
BG 147
Nl TB , NL LFTS ( AST, ALT and AKP )
Nl Lipase
US Abdomen Complete/Upper
Cholelithiasis. There is also slight within the gallbladder.
Gallbladder is distended with no evidence for gallbladder wall thickening or pericholecystic edema.
Negative sonographic Purdy's sign.
There is no evidence for biliary ductal dilation.
The spleen, pancreas, upper abdominal aorta, and upper abdominal IVC are unable to be adequately visualized.
11/14/21 TTE
Inferobasal hypokinesis with overall normal left ventricular systolic function.
LVEF 55-60% by Castillo's method.
Stage I diastolic dysfunction
Normal right ventricular size and function.
Mild mitral regurgitation.
No significant change since the prior study of 02/11/2008.
ASSESSMENT & PLAN
Symptomatic biliary colic due to cholelithiasis
No evidence of acute cholecystitis
- NPO except ice and sips
- IV NS
- Hold off ABx
- PRN Dilaudid
- PRN anti emetic
- GS consulted per ER STOCK PITCHER
Hyponatremia - chronic
Severe hypokalemia
Relative Hypomagnesia Mg 1.6
- IV Mg 1 gm
- on Frusemide but no KCL supplement
- Hold Frusemide
- F/U K in 9-10 pm s/p IV KCL 20 mEq Rembert pus + 20 PO K mEq given at ER
IDDM
- on insulin pump
- consult DM STOCK PITCHER for pump management
Suspect age appropriate cognitive decline vs MCI
Legally blind with baseline ambulatory dysfunction due to impaired eyesight
- PT/OT
- Fall precaution
Known HX
CAD, [place]
HLD
Carotid stenosis
DVT Px: SCD
Full code
IP MS
[2025-01-20] MEDS: MAGNESIUM SULFATE 102 GRAMS IV (16:01)
--- NOTE | 2025-01-20 18:23 | PTCARENOTE ---
Pt in with hypokalemia (2.7) pt placed on tele monitoring.
[2025-01-20] MEDS: COREG 3.125 MG PO (19:55)
[2025-01-20] MEDS: PROTONIX 40 MG PO (19:55)
[2025-01-20] MEDS: NSS 1000 IV (19:55)
[2025-01-20] MEDS: TRUSOPT 2% OPHTHALMIC SOLUTION 1 DROP LEFT EYE (19:57)
[2025-01-20] MEDS: TIMOPTIC 0.5% OPHTHALMIC SOLUTION 1 DROP OPHTH (19:57)
[2025-01-20] MEDS: FLOMAX 0.4 MG PO (21:13)
[2025-01-20] MEDS: SODIUM CHLORIDE 1 GRAM PO (21:13)
[2025-01-20] MEDS: XALATAN OPHTHALMIC SOLUTION 1 DROP BOTH EYES (21:14)
[2025-01-20 21:36] LABS: Potassium 3.0 mmol/L (3.5-5.1)
[2025-01-20] MEDS: KCL 270 MEQ IV (21:46)
[2025-01-20] MEDS: REFRESH EYE DROPS (PF) 1 DROPS OPHTH (22:30)
[2025-01-20 23:10] LABS: Glucose - Point of Care 172 mg/dl (70-99)
[2025-01-21] MEDS: ANESTHETIC LOZENGE 1 LOZENGE PO ×2 (00:55→19:29)
[2025-01-21] MEDS: ZOFRAN 4 MG IV (05:01)
[2025-01-21 05:05] LABS: Glucose - Point of Care 298 mg/dl (70-99)
[2025-01-21] MEDS: REFRESH EYE DROPS (PF) 1 DROPS OPHTH ×2 (05:14→19:29)
[2025-01-21] MEDS: DILAUDID 0.5 MG IV (05:23)
[2025-01-21] MEDS: NSS 1000 IV ×2 (05:23→19:31)
[2025-01-21] MEDS: NOVOLOG FLEXPEN-LOW RESISTANCE 3 UNITS SC ×2 (06:03→13:47)
[2025-01-21 07:11] LABS: Hematocrit 32.2 % (39.0-52.0); Hemoglobin 11.8 g/dL (13.0-18.0); Mean Corp Hgb Conc. 36.6 g/dL (33.0-37.0); Mean Corpuscular Volume 94.2 fL (80.0-94.0); Platelet Count 206 10^3/uL (130-400); Red Cell Dist. Width 12.0 % (11.5-14.5)
[2025-01-21 07:25] VITALS: BP 147/76
[2025-01-21 07:39] LABS: Blood Urea Nitrogen 12 mg/dl (9-20); Calcium 9.2 mg/dl (8.4-10.2); Carbon Dioxide 25 mmol/L (22-30); Chloride 97 mmol/L (98-107); Estimated Creatinine Clearance 78 ml/min; Glucose 293 mg/dl (70-99); Magnesium 1.8 mg/dl (1.6-2.3); Potassium 3.6 mmol/L (3.5-5.1); Sodium 130 mmol/L (135-145); eGFR > 60.00
--- NOTE | 2025-01-21 07:49 | PN.DE.MGMTRT ---
Insulin Management
- -
01/21/2025 Diabetes Management Consult
Patient admitted 01/20 with weakness, hypokalemia, abdominal pain. PMH HTN, HCL, [place], CAD, BPH, anxiety depression, type 1 diabetes, carotid stenosis, dementia. Patient known to me from outpatient visits for insulin pump. Prior to admission was
using the tandem tslim pump with control IQ, Auto soft infusion sets and DexCom. A1C 12/25/24 6.4%, cr .6, eGFR > 60.
Patient is resting in bed, confused, disoriented unable to discuss diabetes care. I did call his Any and reviewed diabetes care prior to admission. She is doing all of Roys set changes and boluses for his meals and corrections. She was
concerned his pump was removed. I explained to her since she is unable to be with Sánchez 05/02 it is best to stop pump and start sq insulin. She understands.
Pump settings used to determine insulin doses.
Will give 5 units NPH now, glucose 293 pre lunch and start 25 units lantus @ hs tonight with novolog 5 units AC and low corrective. Will start 1800 calorie diet.
Discussed with nurse.
Will follow
Diabetes History
- -
Type of Diabetes: 1
Pre-Admission Diabetes Regimen
01/20/25 01/21/25
11:17 05:56
Creatinine 0.5 L 0.6 L
Insulin Pump Settings
IP Diabetes Regimen
01/20/25 01/20/25 01/21/25
11:17 23:08 05:03
Glucose 147 H
POC Glucose 172 H 298 H
01/21/25
05:56
Glucose 293 H
POC Glucose
Patient Education
[2025-01-21] MEDS: LIPITOR 80 MG PO (08:37)
[2025-01-21] MEDS: PROTONIX 40 MG PO ×2 (08:38→19:29)
[2025-01-21] MEDS: COREG 3.125 MG PO ×2 (08:38→19:29)
[2025-01-21] MEDS: WELLBUTRIN XL (24 hour extended release) 150 MG PO (08:38)
[2025-01-21] MEDS: COZAAR 12.5 MG PO (08:38)
[2025-01-21] MEDS: PROSCAR 5 MG PO (08:38)
[2025-01-21] MEDS: SODIUM CHLORIDE 1 GRAM PO ×3 (08:38→21:07)
[2025-01-21] MEDS: THERAGRAN 1 TABLET PO (08:38)
[2025-01-21] MEDS: LOW STRENGTH ASPIRIN 81 MG PO (08:38)
[2025-01-21] MEDS: TRUSOPT 2% OPHTHALMIC SOLUTION 1 DROP LEFT EYE ×2 (08:38→19:30)
[2025-01-21] MEDS: TIMOPTIC 0.5% OPHTHALMIC SOLUTION 1 DROP OPHTH ×2 (08:39→19:30)
[2025-01-21 10:01] VITALS: BP 157/76; BP 171/88; PULSE 88; O2SAT 99
--- NOTE | 2025-01-21 10:22 | CON.GS ---
Addendum entered and electronically signed by Zachary Mejia MD 01/21/25 12:37:
I saw and examined the patient.
The Insulation Manager's note was reviewed and I agree with the note.
Comment: c/o lower abd pain, liquid stools for several weeks. Poor historian. Abd exam totally benign. tells me he recently lost his daughter aged 60. He has been declining since then (September). Gallstones noted on imaging, no stigmata of ACC.
CT notable for heavy stool burden, suspect chronic constipation with overflow. Rec GI consult and psych consult. Gallstones are asymptomatic, incidental. No indication for surgical intervention. Pls call with ?s
Original Note:
Medical History
-
Chief Complaint: generalized abdominal pain and lack of appetite
History of Present Illness:
84yoM PMH HTN, HLD, ASCVD, T1DM, BPH, remote bladder and prostate cancer presenting with concern of acute on chronic reduced appetite and abdominal discomfort.
Mr. Christianson described lack of appetite, possible dysgeusia, and lower abdominal discomfort. He reports sudden bouts of liquid stool with no formed stools. Denies nausea, vomiting, fever, chills. He presented to the ED 3 weeks ago with similar symptoms
with no pertienent findings on work up.
After discussing with his his primary senior analysis specialist, the symptoms seem to have begun when his daughter a couple of months ago. She described a change in appetite, reduced PO, and loss of weight. She reports that his prior history of
cancer is remote and is in remission.
Past Medical History
Past Medical History: CAD, Cancer, HTN, IDDM and Other (BPH)
Past Surgical History: Hernia Repair
Social History
Personal:
Living: With Family ( is primary senior analysis specialist)
Allergies / Home Medications
Allergy/AdvReac Type Severity Reaction Status Date / Time
Cephalosporins Allergy 'years ago' Verified 01/20/25 18:22
�Medication �Instructions �Recorded �Confirmed �Type
Insulin Pump [Patient's Own 0 ea SC .CONTINUOUS Diabetes ##0 02/10/08 01/20/25 History
Insulin Pump:]
carvedilol 3.125 mg tablet 3.125 mg PO BID Blood pressure 02/10/08 01/20/25 History
latanoprost 0.005 % eye drops 1 drp BOTH EYES HS Eye condition 08/19/13 01/20/25 History
##0
ascorbic acid (vitamin C) 500 mg 1,000 mg PO BID Supplement 04/26/15 01/20/25 History
tablet (Vitamin C)
fish,borage,flaxseed oil-omega 1 ea PO TID Supplement 04/26/15 01/20/25 History
3,6,9 no.1 400 mg-400 mg-400 mg
capsule (Hillpoint 3-6-9 Complex)
Lactobac no.2-Bifidobac no.1-S. 1 cap PO DAILY Gastrointestinal 03/24/20 01/20/25 History
thermo 112.5 billion cell capsule issue
(High Potency Probiotic)
multivitamin with folic acid 400 1 tab PO DAILY Supplement 03/24/20 01/20/25 History
mcg tablet (Tab-A-Russel)
dorzolamide 22.3 mg-timolol 6.8 1 drp LEFT EYE BID Eye condition 05/10/21 01/20/25 History
mg/mL eye drops
losartan 25 mg tablet 12.5 mg PO DAILY Blood pressure 05/10/21 01/20/25 History
tamsulosin 0.4 mg capsule 0.4 mg PO HS Urinary issue 05/10/21 01/20/25 History
Magnesium 500 mg PO DAILY Supplement 11/12/21 01/20/25 History
finasteride 5 mg tablet 5 mg PO DAILY Urinary issue 11/12/21 01/20/25 History
aspirin 81 mg chewable tablet 81 mg PO DAILY Blood Clot 01/20/25 01/20/25 History
Prevention/Tx
atorvastatin 80 mg tablet 80 mg PO DAILY High Cholesterol 01/20/25 01/20/25 History
azelastine 137 mcg (0.1 %) nasal 2 spray intranasal HS Allergies 01/20/25 01/20/25 History
spray
bupropion HCl 150 mg 24 hr tablet, 150 mg PO DAILY Mental 01/20/25 01/20/25 History
extended release Health/Anxiety
calcium carbonate (Oyster Shell 1,000 mg PO DAILY Supplement 01/20/25 01/20/25 History
Calcium 500)
cholecalciferol (vitamin D3) 25 25 mcg PO DAILY Supplement 01/20/25 01/20/25 History
mcg (1,000 unit) capsule (Vitamin
D3)
fluticasone propionate 50 2 spray intranasal DAILY Allergies 01/20/25 01/20/25 History
mcg/actuation nasal
spray,suspension
furosemide 40 mg tablet 40 mg PO DAILY Fluid 01/20/25 01/20/25 History
Retention/Swelling
pantoprazole 40 mg tablet,delayed 40 mg PO BID Gastrointestinal Issue 01/20/25 01/20/25 History
release
polysorbate 80-glycerin 1 %-1 % 1 drp ophthalmic (eye) Q4 PRN dry 01/20/25 01/20/25 History
eye drops eye
sodium chloride 1,000 mg soluble 1,000 mg PO TID Hyponatremia 01/20/25 01/20/25 History
tablet
Review of Systems
-
Unable to obtain full review of systems at this time due to: Dementia
History Source: Patient and Family
A 10 point review of systems was completed, and was negative except as per HPI.
Physical Exam
Vital Signs
Temp Pulse Resp BP Pulse Ox
97.6 F 96 16 147/76 95
01/21/25 07:25 01/21/25 08:38 01/21/25 07:25 01/21/25 08:38 01/21/25 07:25
01/20/25 01/21/25 01/22/25
06:59 06:59 06:59
Actual Weight 62.369 kg
Body Mass Index (BMI) 22.2
Lab Results
01/21/25 05:56
01/21/25 05:56
WBC 10.1 10^3/uL (4.8-10.8) 01/21/25 05:56
Hgb 11.8 g/dL (13.0-18.0) L 01/21/25 05:56
Hct 32.2 % (39.0-52.0) L 01/21/25 05:56
Plt Count 206 10^3/uL (130-400) 01/21/25 05:56
Abs Immat Gran (auto) 0.0 10^3/uL (0-0.05) 01/20/25 11:17
Neutrophils % 71.8 % (42.2-75.2) 01/20/25 11:17
Physical Exam
General: Comfortable and Poor Appetite
HEENT: Normocephalic and Atraumatic
Respiratory: Non Labored Respirations
GI: Soft, Non Tender and Non Distended
Musculoskeletal: No Edema
Skin: Warm and Dry
Neuro: Awake, Alert, Oriented (oriented to self) and Nonfocal/Grossly Intact
Psych: Calm
Data Reviewed
-
Radiology: Image Personally Visualized and interpreted
Ultrasound: Image Personally Visualized and interpreted
Assessment / Plan
-
84yoM PMH HTN, HLD, ASCVD, T1DM, BPH, remote bladder and prostate cancer presenting with concern of acute on chronic abdominal pain and reduced PO intake found with hypokalemia and hyponatremia on presentation. CT and US demonstrate cholelithiasis
without concern of impacted stone in the biliary tract. The location and nature of pain the patient describes does not correlate to biliary etiology. CT scan demonstrated distended colon full of stool. With description of liquid BM, concern for
overflow constipation. After discussion with pt's , the symptoms seem to be associated with possible depression in relation to the patient's recent loss concerning for failure to thrive compounded with abdominal discomfort from overflow
constipation and electrolyte abnormalities. No indication for surgery.
Plan
Asymptomatic cholelithiasis. No plan for surgery
GI consult
Consider psychiatric evaluation
--- NOTE | 2025-01-21 10:23 | W.PN.HOSP.TC ---
Addendum entered and electronically signed by Aj Wolff MD 01/21/25 20:50:
Attending Addendum-
I saw and evaluated the patient. I reviewed the resident�s note and agree with findings and plan as documented in the resident�s note. Sub: Complains of feeling bloated and tired. Denies SI or HI. Denies pain NV. States his appetite is poor. Denies
fevers chills. Full 12 point ROS reviewed and negative except as documented Exam: Vitals reviewed in chart GEN-NAD Heart RRR no MRG Lungs clear abd mildly distended soft nt pos BS no rebound/guarding Ext No edema B/L LE Neuro AAO x 3 Psych calm
denies SI or HI
Plan:
#Abdominal Bloating with weight loss
Abd US: Cholelithiasis. There is also slight within the gallbladder. Gallbladder is distended with no evidence for gallbladder wall thickening or pericholecystic edema. Negative sonographic Purdy's sign.
There is no evidence for biliary ductal dilation.
The spleen, pancreas, upper abdominal aorta, and upper abdominal IVC are unable to be adequately visualized.
-not cholecystitis
-could be secondary to gastroparesis vs constipation
-start aggressive bowel regimen
-Surgery input appreciated-not a surgical issue
-early ambulation
#Hypokalemia
-replete
-repeat BMP in am
# Chronic hyponatremia
- baseline @ 130
- continue sodium chloride tabs
- follow BMP
#Hypertension
- continue carvedilol and losartan
#hyperlipidemia
#ASCVD
- continue aspirin and atorvastatin
#DM I
- consult diabetic IN STORE MARKETING REPRESENTATIVE
- patients own insulin pump-hold
- start BB and q ac dosing- 25hs/5ac
- start LD SSI
#BPH
- continue finasteride and tamsulosin
#anxiety/depression
- continue bupropion
- recent passing of daughter
- f/u psych as OP
#GERD
- continue pantoprazole
Code status: full code
DVT prophylaxis: SCDs
Dispo DC home with in am
ACP
Patient consented to discuss, was alone, time spent explanation of advance directives, changes in health status, patient�s health care wishes if the patient becomes unable to make health decisions, goals of care, code status, and prognosis 'yes i
want everything just ask my she'll tell ya'- 16 minutes
Time spent coordinating care, review of plan of care with resident, personally reviewed previous records in EMR, med rec, labs, radiology, d/w nursing, family total time documented is exclusive of any additional time listed that was spent in advance
care planning discussion -�51 minutes
Original Note:
Today's Communication/Plan
-
Check cmp, cbc
Speak with .
Assessment / Plan
Assessment / Plan
# Diabetes Gastroparesis/ Constipation:
Serum k- 3.6
Glucose= 293
Surgery consulted- suggested for oral feeding
CT scan demonstrated distended colon full of stool. With description of liquid BM, concern for overflow constipation.
Monitor k+ level.
advised
glucose 293 pre lunch 5 units NPH given;
25 units lantus @ hs tonight with novolog 5 units AC and low corrective.
Will start 1800 calorie diet.
#Chronic Hyponatremia:
Serum Na- 130
CMP
#Cholilithiasis:
Purdy sign absent
USG: no evidence for Gall Bladder thickening, pericholecystic edema.
# Anxiety/ depression
Continue Bupropion
#hypertension
- continue carvedilol and losartan
#hyperlipidemia
#ASCVD
- continue aspirin and atorvastatin
#DM I
- consult diabetic IN STORE MARKETING REPRESENTATIVE
- patients own insulin pump
#BPH
- continue finasteride and tamsulosin
#anxiety/depression
- continue bupropion
#GERD
- continue pantoprazole
Code status: full code
DVT prophylaxis: SCDs
Anticipated Discharge: Within 24 hours
Subjective/Interval History
-
Date of Service: January 21, 2025
84 yrs old male admitted for abdominal bloating, fatigue, decrease oral intake has no concerns for today.
Objective Data
-
Labs:
01/21/25 05:56
01/21/25 05:56
Laboratory Results
Total Bilirubin 0.9 mg/dl (0.2-1.3) 01/20/25 11:17
AST 30 U/L (17-59) 01/20/25 11:17
ALT 24 U/L (0-50) 01/20/25 11:17
Alkaline Phosphatase 56 U/L (38-126) 01/20/25 11:17
Lipase 31 U/L (23-300) 01/20/25 11:17
Laboratory Results
01/21/25
05:56
WBC 10.1
Hgb 11.8 L
Hct 32.2 L
Plt Count 206
Sodium 130 L
Potassium 3.6
Chloride 97 L
Carbon Dioxide 25
BUN 12
Creatinine 0.6 L
Glucose 293 H
Calcium 9.2
Vital Signs:
Vital Signs
Temp Pulse Resp BP Pulse Ox
97.6 F 96 16 147/76 95
01/21/25 07:25 01/21/25 08:38 01/21/25 07:25 01/21/25 08:38 01/21/25 07:25
I&O
01/20/25 01/21/25 01/22/25
06:59 06:59 06:59
Intake Total 1255 / 1255
Output Total 1450 / 1450
Balance -195 / -195
Review of Systems
-
History Source: Patient
Constitutional: Reports Weight Loss and Fatigue
Respiratory: Reports No Symptoms
Cardiac: Reports No Symptoms
Abdomen/GI: Reports Other (abdominal bloating)
Breast: Reports No Symptoms
Genitourinary: Reports No Symptoms
Musculoskeletal: Reports No Symptoms
Skin: Reports No Symptoms
Neuro: Reports No Symptoms
Endocrine: Reports No Symptoms
Hematologic / Lymphatic: Reports No Symptoms
Allergy / Immunology: Reports No Symptoms
Physical Exam
-
General: No Apparent Distress
HEENT: PERRLA (left eye blindness )
Respiratory: Clear to Auscultation
Cardiac: Regular Rhythm and S1/S2
GI: Soft and Nontender (Dexcom CGM +)
Genito-urinary: No Costovertebral Tender
Skin: Warm
Neuro: Awake, Alert and Oriented
[2025-01-21 11:48] LABS: Glucose - Point of Care 293 mg/dl (70-99)
[2025-01-21] MEDS: NOVOLIN N vial 0.05 UNITS SC (13:20)
[2025-01-21] MEDS: NOVOLOG FLEXPEN 5 UNITS SC ×2 (13:49→17:18)
[2025-01-21] MEDS: NOVOLOG FLEXPEN-LOW RESISTANCE SC (15:04)
[2025-01-21 15:46] VITALS: BP 141/66
[2025-01-21 16:50] LABS: Glucose - Point of Care 222 mg/dl (70-99)
[2025-01-21] MEDS: NOVOLOG FLEXPEN-LOW RESISTANCE 2 UNITS SC (17:19)
[2025-01-21] MEDS: XALATAN OPHTHALMIC SOLUTION 1 DROP BOTH EYES (21:07)
[2025-01-21] MEDS: FLOMAX 0.4 MG PO (21:07)
[2025-01-21 21:13] LABS: Glucose - Point of Care 145 mg/dl (70-99)
[2025-01-21] MEDS: LANTUS 0.25 UNITS SC (21:14)
[2025-01-21 23:48] VITALS: BP 147/77
[2025-01-22 06:53] LABS: Hematocrit 31.0 % (39.0-52.0); Hemoglobin 11.0 g/dL (13.0-18.0); Mean Corp Hgb Conc. 35.5 g/dL (33.0-37.0); Mean Corpuscular Volume 94.8 fL (80.0-94.0); Nucleated Red Blood Cells % 0 % (-); Platelet Count 180 10^3/uL (130-400); Red Cell Dist. Width 12.0 % (11.5-14.5)
[2025-01-22 07:15] LABS: ALT (SGPT) 22 U/L (0-50); AST (SGOT) 25 U/L (17-59); Albumin 3.3 g/dl (3.5-5.0); Alkaline Phosphatase 61 U/L (38-126); Blood Urea Nitrogen 9 mg/dl (9-20); Calcium 9.4 mg/dl (8.4-10.2); Carbon Dioxide 29 mmol/L (22-30); Chloride 98 mmol/L (98-107); Estimated Creatinine Clearance 78 ml/min; Glucose 302 mg/dl (70-99); Potassium 3.2 mmol/L (3.5-5.1); Sodium 132 mmol/L (135-145); Total Protein 5.9 g/dl (6.3-8.2); eGFR > 60.00
[2025-01-22 07:29] LABS: Glucose - Point of Care 350 mg/dl (70-99)
[2025-01-22 07:50] VITALS: BP 157/69
--- NOTE | 2025-01-22 08:11 | PN.DE.MGMTRT ---
Addendum entered and electronically signed by Nalini Castro NP 01/22/25 13:15:
13:15 Patient returned with insulin pump. Will restart insulin pump at basal rates in pump as glucose continues to run high, 309 pre lunch. Pump will deliver basal rates nursing to deliver ac novolog and corrective insulin.
Pump settings
Basal Carb ratio correction
12am .5 10 50
2am .4 10 50
4am .6 55 12
7:30am 1 50 12
10am .5 50 12
2pm .6 50 12
5:30PM 1.5 50 12
7:30PM 2.1 50 12
8PM 2 50 12
10PM 1.8 55 15
24 hour basal total 21.95
Original Note:
Insulin Management
- -
01/22/2025 Diabetes Management Consult Follow up
Patient admitted 01/20 with weakness, hypokalemia, abdominal pain. PMH HTN, HCL, CT, CAD, BPH, anxiety depression, type 1 diabetes, carotid stenosis, dementia. Patient known to me from outpatient visits for insulin pump. Prior to admission was
using the tandem tslim pump with control IQ, Auto soft infusion sets and DexCom. A1C 12/25/24 6.4%, cr .6, eGFR > 60.
01/21 Patient is resting in bed, confused, disoriented unable to discuss diabetes care. I did call his Any and reviewed diabetes care prior to admission. She is doing all of Roys set changes and boluses for his meals and corrections. She
was concerned his pump was removed. I explained to her since she is unable to be with Sánchez 05/02 it is best to stop pump and start sq insulin. She understands.
Pump settings used to determine insulin doses.
Patient received 5 units NPH @ ~12noon, 25 units lantus @ hs with novolog 5 units AC and low corrective. 1800 calorie diet.
01/22 Patient is resting in bed, confused, unable to discuss diabetes care, defers to Any. Any is at bedside. She will bring insulin pump and will restart pump. To run basal rate only, will continue to administer AC novolog as patient is
unable to program pump for bolus for meals or correction. Glucose improved by Fasting this AM 302. Will increase AC novolog to 7 units with low corrective.
Discussed with nurse.
Will follow
Diabetes History
- -
Type of Diabetes: 1
Pre-Admission Diabetes Regimen
01/22/25
05:55
Creatinine 0.5 L
Insulin Pump Settings
IP Diabetes Regimen
01/21/25 01/21/25 01/21/25
11:45 16:46 21:12
Glucose
POC Glucose 293 H 222 H 145 H
01/22/25 01/22/25
05:55 07:19
Glucose 302 H
POC Glucose 350 H
Meal type: Breakfast
Amount consumed: 100%
Patient Education
[2025-01-22] MEDS: NOVOLOG FLEXPEN-LOW RESISTANCE 5 UNITS SC (08:50)
[2025-01-22] MEDS: NOVOLOG FLEXPEN 7 UNITS SC ×3 (08:50→18:08)
--- NOTE | 2025-01-22 08:50 | W.PN.HOSP.TC ---
Addendum entered and electronically signed by Aj Wolff MD 01/22/25 23:02:
Attending Addendum-
I saw and evaluated the patient. I reviewed the resident�s note and agree with findings and plan as documented in the resident�s note. Sub: Patinet feels improved. Denies BM pos flatus 'i think' Denies SI or HI. Denies pain NV. States his appetite
is poor. Denies fevers chills. Seen with present. Full 12 point ROS reviewed and negative except as documented Exam: Vitals reviewed in chart GEN-NAD Heart RRR no MRG Lungs clear abd mildly distended soft nt pos BS no rebound/guarding Ext No
edema B/L LE Neuro AAO x 3 Psych calm denies SI or HI
Plan:
#Abdominal Bloating with weight loss
Abd US: Cholelithiasis. There is also slight within the gallbladder. Gallbladder is distended with no evidence for gallbladder wall thickening or pericholecystic edema. Negative sonographic Purdy's sign.
There is no evidence for biliary ductal dilation.
The spleen, pancreas, upper abdominal aorta, and upper abdominal IVC are unable to be adequately visualized.
-could be secondary to gastroparesis vs constipation
-start aggressive bowel regimen
-Surgery input appreciated-not a surgical issue
-early ambulation
-GI consult- appreciate input
#Hypokalemia
-replete aggressively
-repeat BMP in am
-check mg
# Chronic hyponatremia
- baseline @ 130
- continue sodium chloride tabs
- follow BMP
#Hypertension
- continue carvedilol and losartan
#hyperlipidemia
#ASCVD
- continue aspirin and atorvastatin
#DM I
- uncontrolled
- consult diabetic PSYCHIC READER
- insulin pump-hold
- increase BB and q ac dosing- 25hs/5ac->30/7
- contLD SSI
#BPH
- continue finasteride and tamsulosin
#Anxiety/depression
- continue bupropion
- recent passing of daughter
- f/u psych as OP
- t/c Remeron as OP
#GERD
- continue pantoprazole
Code status: full code
DVT prophylaxis: SCDs
Dispo DC home vs SNF in am
Time spent coordinating care, review of plan of care with resident, personally reviewed records in EMR, med rec, consults, notes, labs, radiology, d/w nursing � 52 mins
Original Note:
Today's Communication/Plan
-
Disposition: SNF
Assessment / Plan
Assessment / Plan
#Abdominal Bloating with weight loss
Abd US: Cholelithiasis. There is also slight within the gallbladder. Gallbladder is distended with no evidence for gallbladder wall thickening or pericholecystic edema. Negative sonographic Purdy's sign.
There is no evidence for biliary ductal dilation.
The spleen, pancreas, upper abdominal aorta, and upper abdominal IVC are unable to be adequately visualized.
-not cholecystitis
-could be secondary to gastroparesis vs constipation
# Diabetes Gastroparesis/Chronic Constipation:
Serum k- 3.6
Glucose= 302
CT scan demonstrated distended colon full of stool. With description of liquid BM, concern for overflow constipation.
Monitor k+ level.
advised
glucose pre lunch 5 units NPH given;
25 units lantus @ hs tonight with novolog 5 units AC and low corrective.
Will start 1800 calorie diet.
#Chronic Hyponatremia:
Serum Na- 130
CMP
continue Na tablet
# Anxiety/ depression
Continue Bupropion
#hypertension
- continue carvedilol and losartan
#hyperlipidemia
#ASCVD
- continue aspirin and atorvastatin
#DM I
- consult diabetic PSYCHIC READER
- patients own insulin pump
#BPH
- continue finasteride and tamsulosin
#anxiety/depression
- continue bupropion
#GERD
- continue pantoprazole
Code status: full code
DVT prophylaxis: SCDs
Disposition: SNF
Anticipated Discharge: Within 24 hours
Subjective/Interval History
-
Date of Service: January 22, 2025
Pt doesnt has any overnight concerns.
Objective Data
-
Labs:
01/22/25 05:55
01/22/25 05:55
Laboratory Results
Total Bilirubin 1.1 mg/dl (0.2-1.3) 01/22/25 05:55
AST 25 U/L (17-59) 01/22/25 05:55
ALT 22 U/L (0-50) 01/22/25 05:55
Alkaline Phosphatase 61 U/L (38-126) 01/22/25 05:55
Lipase 31 U/L (23-300) 01/20/25 11:17
Laboratory Results
01/22/25
05:55
WBC 8.0
Hgb 11.0 L
Hct 31.0 L
Plt Count 180
Sodium 132 L
Potassium 3.2 L
Chloride 98
Carbon Dioxide 29
BUN 9
Creatinine 0.5 L
Glucose 302 H
Calcium 9.4
Total Bilirubin 1.1
AST 25
ALT 22
Alkaline Phosphatase 61
Vital Signs:
Vital Signs
Temp Pulse Resp BP Pulse Ox
97.8 F 94 16 157/69 95
01/22/25 07:50 01/22/25 07:50 01/22/25 07:50 01/22/25 07:50 01/22/25 07:50
I&O
01/21/25 01/22/25 01/23/25
06:59 06:59 06:59
Intake Total 1255 / 1255 1560 / 1560
Output Total 1450 / 1450 1875 / 1875
Balance -195 / -195 -315 / -315
Review of Systems
-
History Source: Patient
Constitutional: Reports No Symptoms
EENT: Reports Other (left eye blindness)
Respiratory: Reports No Symptoms
Cardiac: Reports No Symptoms
Abdomen/GI: Reports Constipated, Bloated and Other (patient had one bowel movement today morning. )
Genitourinary: Reports No Symptoms
Musculoskeletal: Reports No Symptoms
Skin: Reports No Symptoms
Neuro: Reports No Symptoms
Endocrine: Reports No Symptoms
Hematologic / Lymphatic: Reports No Symptoms
Allergy / Immunology: Reports No Symptoms
Physical Exam
-
General: Well Developed
Respiratory: Clear to Auscultation
Cardiac: Regular Rhythm and S1/S2
GI: Soft and Nontender
Genito-urinary: No Costovertebral Tender
Musculoskeletal: No Clubbing
Skin: Warm
Neuro: AO x 3
Hematologic / Lymphatic: No Lymphadenopathy
Psych: Calm
[2025-01-22] MEDS: TRUSOPT 2% OPHTHALMIC SOLUTION 1 DROP LEFT EYE ×2 (08:51→20:28)
[2025-01-22] MEDS: COZAAR 12.5 MG PO (08:51)
[2025-01-22] MEDS: LOW STRENGTH ASPIRIN 81 MG PO (08:51)
[2025-01-22] MEDS: TIMOPTIC 0.5% OPHTHALMIC SOLUTION 1 DROP OPHTH ×2 (08:51→20:28)
[2025-01-22] MEDS: PROTONIX 40 MG PO ×2 (08:52→20:25)
[2025-01-22] MEDS: SODIUM CHLORIDE 1 GRAM PO ×3 (08:52→20:25)
[2025-01-22] MEDS: COREG 3.125 MG PO ×2 (08:52→20:45)
[2025-01-22] MEDS: THERAGRAN 1 TABLET PO (08:53)
[2025-01-22] MEDS: WELLBUTRIN XL (24 hour extended release) 150 MG PO (08:53)
[2025-01-22] MEDS: LIPITOR 80 MG PO (08:53)
[2025-01-22] MEDS: PROSCAR 5 MG PO (08:53)
[2025-01-22] MEDS: NOVOLOG FLEXPEN SC (09:08)
--- NOTE | 2025-01-22 11:29 | CON.GI ---
Addendum entered and electronically signed by Yodit Robertson DO 01/22/25 12:55:
The patient was seen and examined by me independently in collaboration with the nurse practitioner.
Past medical history/social history/medications/allergies/family history reviewed.
Lab data and imaging data reviewed.
84yo with CAD/prior HI with prior stenting, prostate CA, IDDM, fernando's esophagus, colon polyps, glaucoma, BPH, hearing loss, detached retina, osteo, herniated disc, skin CA removal, mastoidectomy, b/l cataracts, TURBT, hernia repair with mesh
admitted with abdominal bloating and anorexia with unintentional weight loss for the last few weeks. Of note, his daughter in September and this is when things seem to have declined. In December he had a CT scan which showed a large amount of
fecal material throughout the colon, he was started on daily MiraLAX which improved things, moving his bowels daily. Repeat abdominal x-ray shows some air in the colon but upon my review does not reveal significant stool burden.
-Continue daily miralax
-can add simethicone with meals prn for bloating/discomfort
-t/c psych evaluation as depression is likely playing a large role
-mirtazipine may be a good agent for him
GI will sign off, please call with questions.
Addendum entered and electronically signed by ANA LUISA Noble 01/22/25 12:50:
reviewed with hospitalist
Original Note:
Consultation
-
Date/Time Consultation Requested: 01/22/25 0900
Date/Time Consultation Performed: 01/22/25 1130
Requesting Provider: Fadumo Otero MD
Performing Provider: ANA LUISA Rodríguez, Shahnaz Robertson DO
Reason for Consultation: decreased appetite, bloating, constipation
Medical History
Chief Complaint / HPI
Chief Complaint: bloating, wt loss, decreased appetite
History of Present Illness:
Pt is a 84yo with CAD/prior HI with prior stenting, prostate CA, IDDM, fernando's esophagus, colon polyps, glaucoma, BPH, hearing loss, detached retina, osteo, herniated disc, skin CA removal, mastoidectomy, b/l cataracts, TURBT, hernia repair with
mesh with admission with abdominal bloating, decreased oral intakes and wt loss for last several weeks. In review with family pt has had decline last few months. related his daughter in September and seemed to be the beginning of
symptoms. pt was in ER in December and Ct noted with large amount of stool in colon. Pt was place on Miralax with regular stool but continued with wt loss admission noted with hbg 11, Na 126 (chronic issue with baseline about 130) , K 2.7 with
normal LFT's. US abdomen with Cholelithiasis. There is also sludge within the gallbladder. Gallbladder is distended with no evidence for gallbladder wall thickening or pericholecystic edema. Negative sonographic Purdy's sign. There is no evidence
for biliary ductal dilation.The spleen, pancreas, upper abdominal aorta, and upper abdominal IVC are unable to be adequately visualized. Obs series with atelectasis no obstruction or free air. Pt was recently started on Wellbutrin with concern
for depression.
In review with occasional abdominal pain with decreased appetite, belching but having regular stools since Miralax started. Per patient he had flat affect with some one word answers and admits to bloating but denies dysphagia, GERD,
nausea, vomiting, abdominal pain, diarrhea constipation or bleeding.
[facility] secondary to established
short-segment Fernando's disease. Biopsied.
- A few gastric polyps. Biopsied.
- Normal examined duodenum.
bx intestinal metaplasia present neg dysplasia
2014- colonoscopy- - Melanosis in the colon. Biopsied.
- Multiple small polyps in the sigmoid colon. Resected
and retrieved. bx HP polyp and melanosis, no active colitis
Past Medical History
Past Medical History: CAD, Cancer (prostate CA), IDDM, HI and Other (fernando's esophagus, colon polyps, glaucoma, BPH, hearing loss, detached retina, osteo, herniated disc)
Past Surgical History: Cardiac (PTCA with stent), Orthopedic (hernia disc repair) and Other (eye surgery, skin CA removal, mastoidectomy, b/l cataracts, TURBT, hernia repair with mesh )
Social History
Tobacco: Non-Smoker
Alcohol: None
Drug: None
Personal:
Living: With Family
Employment: Retired
Family History
Family History: Reviewed & Not Pertinent
Allergies / Home Medications
Allergy/AdvReac Type Severity Reaction Status Date / Time
Cephalosporins Allergy 'years ago' Verified 01/20/25 18:22
�Medication �Instructions �Recorded
Insulin Pump [Patient's Own 0 ea SC .CONTINUOUS Diabetes ##0 02/10/08
Insulin Pump:]
carvedilol 3.125 mg tablet 3.125 mg PO BID Blood pressure 02/10/08
latanoprost 0.005 % eye drops 1 drp BOTH EYES HS Eye condition 08/19/13
##0
ascorbic acid (vitamin C) 500 mg 1,000 mg PO BID Supplement 04/26/15
tablet (Vitamin C)
fish,borage,flaxseed oil-omega 1 ea PO TID Supplement 04/26/15
3,6,9 no.1 400 mg-400 mg-400 mg
capsule ([place] 3-6-9 Complex)
Lactobac no.2-Bifidobac no.1-S. 1 cap PO DAILY Gastrointestinal 03/24/20
thermo 112.5 billion cell capsule issue
(High Potency Probiotic)
multivitamin with folic acid 400 1 tab PO DAILY Supplement 03/24/20
mcg tablet (Tab-A-Russel)
dorzolamide 22.3 mg-timolol 6.8 1 drp LEFT EYE BID Eye condition 05/10/21
mg/mL eye drops
losartan 25 mg tablet 12.5 mg PO DAILY Blood pressure 05/10/21
tamsulosin 0.4 mg capsule 0.4 mg PO HS Urinary issue 05/10/21
Magnesium 500 mg PO DAILY Supplement 11/12/21
finasteride 5 mg tablet 5 mg PO DAILY Urinary issue 11/12/21
aspirin 81 mg chewable tablet 81 mg PO DAILY Blood Clot 01/20/25
Prevention/Tx
atorvastatin 80 mg tablet 80 mg PO DAILY High Cholesterol 01/20/25
azelastine 137 mcg (0.1 %) nasal 2 spray intranasal HS Allergies 01/20/25
spray
bupropion HCl 150 mg 24 hr tablet, 150 mg PO DAILY Mental 01/20/25
extended release Health/Anxiety
calcium carbonate (Oyster Shell 1,000 mg PO DAILY Supplement 01/20/25
Calcium 500)
cholecalciferol (vitamin D3) 25 25 mcg PO DAILY Supplement 01/20/25
mcg (1,000 unit) capsule (Vitamin
D3)
fluticasone propionate 50 2 spray intranasal DAILY Allergies 01/20/25
mcg/actuation nasal
spray,suspension
furosemide 40 mg tablet 40 mg PO DAILY Fluid 01/20/25
Retention/Swelling
pantoprazole 40 mg tablet,delayed 40 mg PO BID Gastrointestinal Issue 01/20/25
release
polysorbate 80-glycerin 1 %-1 % 1 drp ophthalmic (eye) Q4 PRN dry 01/20/25
eye drops eye
sodium chloride 1,000 mg soluble 1,000 mg PO TID Hyponatremia 01/20/25
tablet
Review of Systems
-
History Source: Patient and Family
Constitutional: Reports Weight Loss and Fatigue
EENT: Reports No Symptoms
Respiratory: Reports No Symptoms
Cardiac: Reports No Symptoms
Abdomen/GI: Reports Abdominal Pain (per at times )
: Reports No Symptoms
Musculoskeletal: Reports No Symptoms
Skin: Reports No Symptoms
Neurological: Reports Weakness and Other (sleepiness)
Endocrine: Reports No Symptoms
Hematologic/Lymphatic: Reports No Symptoms
Vital Signs
Temp Pulse Resp BP Pulse Ox
97.8 F 94 16 157/69 95
01/22/25 07:50 01/22/25 08:51 01/22/25 07:50 01/22/25 08:51 01/22/25 09:30
Physical Exam
Exam
General: Other (flat affect and lying in bed answering only one word answers )
HEENT: Normocephalic and Anicteric
Respiratory: Clear
Cardiac: Regular Rhythm
GI: Soft, Non Tender and Non Distended
Musculoskeletal: No Clubbing and No Cyanosis
Skin: Warm and Dry
Neuro: Awake, Alert and Other (flat affect )
Psych: Calm
Results
WBC 8.0 10^3/uL (4.8-10.8) 01/22/25 05:55
Hgb 11.0 g/dL (13.0-18.0) L 01/22/25 05:55
Hct 31.0 % (39.0-52.0) L 01/22/25 05:55
MCV 94.8 fL (80.0-94.0) H 01/22/25 05:55
Plt Count 180 10^3/uL (130-400) 01/22/25 05:55
Absolute Neuts (auto) 7.2 10^3/uL (1.4-6.5) H 01/22/25 05:55
Sodium 132 mmol/L (135-145) L 01/22/25 05:55
Potassium 3.2 mmol/L (3.5-5.1) L 01/22/25 05:55
Chloride 98 mmol/L (98-107) 01/22/25 05:55
Carbon Dioxide 29 mmol/L (22-30) 01/22/25 05:55
BUN 9 mg/dl (9-20) 01/22/25 05:55
Creatinine 0.5 mg/dL (0.7-1.3) L 01/22/25 05:55
Calcium 9.4 mg/dl (8.4-10.2) 01/22/25 05:55
Total Bilirubin 1.1 mg/dl (0.2-1.3) 01/22/25 05:55
AST 25 U/L (17-59) 01/22/25 05:55
ALT 22 U/L (0-50) 01/22/25 05:55
Alkaline Phosphatase 61 U/L (38-126) 01/22/25 05:55
Lipase 31 U/L (23-300) 01/20/25 11:17
Diagnostic Image Results:
01/20/25 US Abdomen Complete/Upper
Cholelithiasis. There is also slight within the gallbladder. Gallbladder is distended with no evidence for gallbladder wall thickening or pericholecystic edema. Negative sonographic Purdy's sign.
There is no evidence for biliary ductal dilation.
The spleen, pancreas, upper abdominal aorta, and upper abdominal IVC are unable to be adequately visualized.
01/20/25 obstruction series
IMPRESSION: Linear densities within the medial left lower lung, which is likely linear atelectasis.
No evidence for bowel obstruction or free intraperitoneal air.
01/08/25 CT a/p with IV contrast
IMPRESSION: No acute pathology of the abdomen or pelvis identified.
Gallstones.
Large amount of fecal matter throughout the colon.
Severe atherosclerotic vascular disease.
01/2023- [facility] -EGD - Esophageal mucosal changes secondary to established
short-segment Fernando's disease. Biopsied.
- A few gastric polyps. Biopsied.
- Normal examined duodenum.
bx intestinal metaplasia present neg dysplasia
2014- colonoscopy- - Melanosis in the colon. Biopsied.
- Multiple small polyps in the sigmoid colon. Resected
and retrieved. bx HP polyp and melanosis, no active colitis
Assessment / Plan
-
Pt is a 84yo with CAD/prior HI with prior stenting, prostate CA, IDDM, fernando's esophagus, colon polyps, glaucoma, BPH, hearing loss, detached retina, osteo, herniated disc, skin CA removal, mastoidectomy, b/l cataracts, TURBT, hernia repair with
mesh with admission with abdominal bloating, decreased oral intakes and wt loss for last several weeks. In review with family pt has had decline last few months. related his daughter in September and seemed to be the beginning of
symptoms. pt was in ER in December and Ct noted with large amount of stool in colon. Pt was place on Miralax with regular stool but continued with wt loss admission noted with hbg 11, Na 126 (chronic issue with baseline about 130) , K 2.7 with
normal LFT's. US abdomen with Cholelithiasis. There is also sludge within the gallbladder. Gallbladder is distended with no evidence for gallbladder wall thickening or pericholecystic edema. Negative sonographic Purdy's sign. There is no evidence
for biliary ductal dilation.The spleen, pancreas, upper abdominal aorta, and upper abdominal IVC are unable to be adequately visualized. Obs series with atelectasis no obstruction or free air. Pt was recently started on Wellbutrin with concern
for depression.
-wt loss/decreased appetite/belching
-constipation on 12/29 CT
-acute on chronic hyponatremia
-hypokalemia
-Gallbladder distention/cholelithiasis
-depressed affect
other med problems:
CAD/prior HI with prior stenting, prostate CA, IDDM, fernando's esophagus, colon polyps, glaucoma, BPH, hearing loss, detached retina, osteo, herniated disc, skin CA removal, mastoidectomy, b/l cataracts, TURBT, hernia repair with mesh
PLAN:
etiology of symptoms unclear
from constipation standpoint I reviewed obs series on admission and constipation is improving with miralax daily since 12/29 CT
hx DM recent hbgA1C 6.4 and no vomiting so doubt gastroparesis playing a role
with hx fernando's no dysphagia, hematemesis and had last screening in 2022
s/p surgical consult noted gallstone without abdominal pain
low Na and K can cause ileus picture but ileus not noted on imaging and Na issue has been chronic
I reviewed with also consider for depression as very flat affect on exam and minimal interaction -- t/c psych eval
keep electrolyte corrected
add Glucerna daily with wt loss
-
-
-
Thank you for consultation and allowing me to participate in the patient's care. Please call the [employer] [facility] GI physician during the after hours with any questions or concerns.
[2025-01-22 11:38] LABS: Glucose - Point of Care 309 mg/dl (70-99)
[2025-01-22] MEDS: MIRALAX 17 GRAMS PO (13:09)
[2025-01-22] MEDS: KCL 40 MEQ PO (13:09)
[2025-01-22] MEDS: SENOKOT-S 1 TABLET PO (13:09)
[2025-01-22 14:08] LABS: Glucose - Point of Care 286 mg/dl (70-99)
[2025-01-22] MEDS: NOVOLOG FLEXPEN-LOW RESISTANCE 3 UNITS SC (14:15)
[2025-01-22 15:06] VITALS: BP 142/61
[2025-01-22 16:34] LABS: Glucose - Point of Care 240 mg/dl (70-99)
--- NOTE | 2025-01-22 17:31 | CM ---
Alert awake oriented patient who lives with his Asia who lives in a 1 story home with 13 step to enter .He is assisted in all activities of daily living.Will need PT OT for dc planning.
Pt [facility] hx / [facility] history
Pharmacy [facility] [place]
PCP pt not sure
PLAN Will need PT OT for dc planning.
[2025-01-22] MEDS: NOVOLOG FLEXPEN-LOW RESISTANCE 2 UNITS SC (18:09)
[2025-01-22] MEDS: FLOMAX 0.4 MG PO (20:25)
[2025-01-22] MEDS: XALATAN OPHTHALMIC SOLUTION 1 DROP BOTH EYES (20:28)
[2025-01-22 21:45] LABS: Glucose - Point of Care 209 mg/dl (70-99)
[2025-01-22 23:17] VITALS: BP 135/75
--- NOTE | 2025-01-23 07:39 | PN.DE.MGMTRT ---
Addendum entered and electronically signed by ANA LUISA Ardon 01/23/25 13:27:
Notified by Nurse that patient's has restarted the insulin pump upon arrival to pt's room. Pump is in basal rate only.
Pt's was frustrated and concerned that his pump was removed. I explained to her since pt's pump had fallen off of him and blood glucose was elevated >250, it was best to give basal insulin to manage glucose escalation and she understood.
Pt's insulin Pump is back in place and infusing.
Pump settings as follow to deliver basal rates on;y. Nursing to deliver AC NovoLog 7 units and corrective insulin.
Pump settings
Basal Carb ratio correction
12am .5 10 50
2am .4 10 50
4am .6 55 12
7:30am 1 50 12
10am .5 50 12
2pm .6 50 12
5:30PM 1.5 50 12
7:30PM 2.1 50 12
8PM 2 50 12
10PM 1.8 55 15
24 hour basal total 21.95
Discussed with nurse.
Will con to follow
Original Note:
Insulin Management
- -
01/23/2025 Diabetes Management Consult Follow up
Patient admitted 01/20 with weakness, hypokalemia, abdominal pain. PMH HTN, HCL, VA, CAD, BPH, anxiety depression, type 1 diabetes, carotid stenosis, dementia. Patient known to me from outpatient visits for insulin pump. Prior to admission was
using the tandem tslim pump with control IQ, Auto soft infusion sets and DexCom. Patient's is doing all of the set changes and boluses for his meals and corrections. A1C 12/25/24 6.4%, cr .6, eGFR > 60.
Patient is resting in bed, confused, disoriented unable to discuss diabetes care.
Nurse reports that pt's insulin pump fell off his body over night and has not been infusion insulin.
Pt is unable to manage insulin pump independently without his .
HS Glucose was 207, FBG 336 V, 387 POC this AM. Will give 1 time dose of Lantus 25 units NOW
Pt is already ordered AC NovoLog 7 units and low corrective AC. Will cont same w/o changes.
Will cont to follow. Discussed with nurse
Diabetes History
- -
Type of Diabetes: 1
Pre-Admission Diabetes Regimen
Insulin Pump Settings
IP Diabetes Regimen
01/22/25 01/22/25 01/22/25
11:37 14:05 16:32
POC Glucose 309 H 286 H 240 H
01/22/25
21:44
POC Glucose 209 H
Meal type: Lunch
Amount consumed: 50%
Patient Education
[2025-01-23 07:40] VITALS: BP 136/58
[2025-01-23 07:54] LABS: Hematocrit 31.5 % (39.0-52.0); Hemoglobin 11.0 g/dL (13.0-18.0); Mean Corp Hgb Conc. 34.9 g/dL (33.0-37.0); Mean Corpuscular Volume 95.5 fL (80.0-94.0); Nucleated Red Blood Cells % 0 % (-); Platelet Count 181 10^3/uL (130-400); Red Cell Dist. Width 12.3 % (11.5-14.5)
[2025-01-23] MEDS: SODIUM CHLORIDE 1 GRAM PO ×2 (08:01→15:38)
[2025-01-23] MEDS: THERAGRAN 1 TABLET PO (08:01)
[2025-01-23] MEDS: LIPITOR 80 MG PO (08:01)
[2025-01-23] MEDS: COZAAR 12.5 MG PO (08:01)
[2025-01-23] MEDS: WELLBUTRIN XL (24 hour extended release) 150 MG PO (08:01)
[2025-01-23] MEDS: COREG 3.125 MG PO (08:01)
[2025-01-23] MEDS: LOW STRENGTH ASPIRIN 81 MG PO (08:02)
[2025-01-23] MEDS: PROSCAR 5 MG PO (08:02)
[2025-01-23] MEDS: PROTONIX 40 MG PO (08:02)
[2025-01-23] MEDS: TRUSOPT 2% OPHTHALMIC SOLUTION 1 DROP LEFT EYE (08:03)
[2025-01-23] MEDS: MIRALAX 17 GRAMS PO (08:03)
[2025-01-23] MEDS: TIMOPTIC 0.5% OPHTHALMIC SOLUTION 1 DROP OPHTH (08:03)
[2025-01-23] MEDS: FLUSH (NSS) 1 FLUSH IV (08:04)
[2025-01-23 08:07] LABS: Glucose - Point of Care 387 mg/dl (70-99)
--- NOTE | 2025-01-23 08:15 | PTCARENOTE ---
Per shift production supervisor RN found insulin pump off pt/laying in bed. Insulin pump currently off. Nancy MIR currently 387. TJasen Cortez RN notified.
[2025-01-23 08:21] LABS: ALT (SGPT) 22 U/L (0-50); AST (SGOT) 26 U/L (17-59); Albumin 3.2 g/dl (3.5-5.0); Alkaline Phosphatase 57 U/L (38-126); Blood Urea Nitrogen 10 mg/dl (9-20); Calcium 9.0 mg/dl (8.4-10.2); Carbon Dioxide 23 mmol/L (22-30); Chloride 97 mmol/L (98-107); Estimated Creatinine Clearance 78 ml/min; Glucose 336 mg/dl (70-99); Magnesium 1.8 mg/dl (1.6-2.3); Potassium 3.7 mmol/L (3.5-5.1); Sodium 130 mmol/L (135-145); Total Protein 5.9 g/dl (6.3-8.2); eGFR > 60.00
[2025-01-23] MEDS: NOVOLOG FLEXPEN-LOW RESISTANCE 5 UNITS SC (08:44)
[2025-01-23] MEDS: NOVOLOG FLEXPEN 7 UNITS SC ×2 (08:44→12:36)
[2025-01-23] MEDS: LANTUS 0.25 UNITS SC (09:22)
--- NOTE | 2025-01-23 09:47 | CM ---
Addendum entered by Maya Borden RN 01/23/25 14:35:
requested [facility] said she can accept him .
[facility]
report [phone]
fax [phone]
PLAN To [facility] today
Original Note:
Spoke with patient Asia .She said patient has been impacted with stool and his insulin pump fell off.
Pt is confused as per . PCP is DR Nadine Wilson.
TT MD to review medical update with her.
PT =SNF
Reviewed PT with Offered SNF . She requested [facility].
Referral placed.
IMM reviewed with .
PLAN To SNF after located
--- NOTE | 2025-01-23 11:25 | PTCARENOTE ---
Pt's in room; replaced pt's insulin pump. Stated that Clementina RUIZ requested not to have insulin pump replaced; pt's stated 'It's staying on; it's not going to hurt him'. Will continue to monitor.
[2025-01-23 11:57] LABS: Glucose - Point of Care 226 mg/dl (70-99)
[2025-01-23] MEDS: FLEET PHOSPHATE ENEMA-ADULT 135 ML RECTAL (12:35)
[2025-01-23] MEDS: NOVOLOG FLEXPEN-LOW RESISTANCE 2 UNITS SC (12:36)
--- NOTE | 2025-01-23 19:48 | W.PN.HOSP.TC ---
Addendum entered and electronically signed by Aj Wolff MD 01/23/25 22:25:
Attending Addendum-
I saw and evaluated the patient. I reviewed the resident�s note and agree with findings and plan as documented in the resident�s note. Sub: Patient feels improved Had BM with enema. pos flatus. Denies SI or HI. Denies pain NV. States his appetite is
poor. Denies fevers chills. Seen with present. Full 12 point ROS reviewed and negative except as documented Exam: Vitals reviewed in chart GEN-NAD Heart RRR no MRG Lungs clear abd mildly distended soft nt pos BS no rebound/guarding Ext No edema
B/L LE Neuro AAO x 3 Psych calm denies SI or HI
Plan:
#Abdominal Bloating with weight loss
Abd US: Cholelithiasis. There is also slight within the gallbladder. Gallbladder is distended with no evidence for gallbladder wall thickening or pericholecystic edema. Negative sonographic Purdy's sign.
There is no evidence for biliary ductal dilation.
The spleen, pancreas, upper abdominal aorta, and upper abdominal IVC are unable to be adequately visualized.
-could be secondary to gastroparesis vs constipation
-cont aggressive bowel regimen
-Surgery input appreciated-not a surgical issue
-early ambulation
-GI consult- appreciate input
#Hypokalemia
-replete aggressively
-repeat BMP in am
-check mg
# Chronic hyponatremia
- baseline @ 130
- continue sodium chloride tabs
- follow BMP
#Hypertension
- continue carvedilol and losartan
#hyperlipidemia
#ASCVD
- continue aspirin and atorvastatin
#DM I
- uncontrolled
- diabetic MANAGER PATIENT input appreciated
- restart insulin pump
- cont LD SSI
#BPH
- continue finasteride and tamsulosin
#Anxiety/depression
- DC bupropion
- recent passing of daughter
- f/u psych as OP
- START Remeron
#GERD
- continue pantoprazole
Code status: full code
DVT prophylaxis: SCDs
Dispo DC to [facility]
Time spent coordinating care, DC planning, review of DC plan of care with resident, transition of care, review of records, med rec/scripts sent electronically, consults, notes, d/w consultants, nursing, family, and CM� 32 mins >50% of this time was
devoted to counseling and coordination of care
Original Note:
Today's Communication/Plan
-
Discharged today.
Assessment / Plan
Assessment / Plan
#Abdominal Bloating with weight loss
Abd US: Cholelithiasis. There is also slight within the gallbladder. Gallbladder is distended with no evidence for gallbladder wall thickening or pericholecystic edema. Negative sonographic Purdy's sign.
There is no evidence for biliary ductal dilation.
The spleen, pancreas, upper abdominal aorta, and upper abdominal IVC are unable to be adequately visualized.
-not cholecystitis
-could be secondary to gastroparesis vs constipation
# Diabetes Gastroparesis/Chronic Constipation:
Serum k- 3.7; Glucose= 226
CT scan demonstrated distended colon full of stool. With description of liquid BM, concern for overflow constipation.
k+ level -
advised
glucose pre lunch 5 units NPH given;
Will start 1800 calorie diet.
Pt own Humalog (Lispro) pump is placed along with CGM monitor.
Miralax 17gms PO daily.
#Chronic Hyponatremia:
Serum Na- 130
CMP
continue Na tablet
# Anxiety/ depression
Continue Bupropion
#hypertension
- continue carvedilol and losartan
#hyperlipidemia
#ASCVD
- continue aspirin and atorvastatin
#DM I
- consult diabetic MANAGER PATIENT
- patients own insulin pump
#BPH
- continue finasteride and tamsulosin
#anxiety/depression
- continue bupropion
#GERD
- continue pantoprazole
Code status: full code
DVT prophylaxis: SCDs
Disposition: SNF ([facility])
Anticipated Discharge: Today
Subjective/Interval History
-
Date of Service: January 23, 2025
Patient doesnt has concerns for abdominal pain, swelling.
Objective Data
-
Labs:
Laboratory Results
01/23/25 06:06
01/23/25 06:06
Laboratory Results
Total Bilirubin 1.0 mg/dl (0.2-1.3) 01/23/25 06:06
AST 26 U/L (17-59) 01/23/25 06:06
ALT 22 U/L (0-50) 01/23/25 06:06
Alkaline Phosphatase 57 U/L (38-126) 01/23/25 06:06
Lipase 31 U/L (23-300) 01/20/25 11:17
01/23/25
06:06
WBC 7.6
Hgb 11.0 L
Hct 31.5 L
Plt Count 181
Sodium 130 L
Potassium 3.7
Chloride 97 L
Carbon Dioxide 23
BUN 10
Creatinine 0.5 L
Glucose 336 H
Calcium 9.0
Total Bilirubin 1.0
AST 26
ALT 22
Alkaline Phosphatase 57
Vital Signs:
01/23/25 06:06
01/23/25 06:06
Laboratory Results
Total Bilirubin 1.0 mg/dl (0.2-1.3) 01/23/25 06:06
AST 26 U/L (17-59) 01/23/25 06:06
ALT 22 U/L (0-50) 01/23/25 06:06
Alkaline Phosphatase 57 U/L (38-126) 07/11/25 06:06
Lipase 31 U/L (23-300) 01/20/25 11:17
Vital Signs
Temp Pulse Resp BP Pulse Ox
98.9 F 83 16 136/58 97
01/23/25 07:40 01/23/25 08:01 01/23/25 07:40 01/23/25 08:01 01/23/25 10:54
I&O
01/22/25 01/23/25 01/24/25
06:59 06:59 06:59
Intake Total 1560 / 1560 240 / 240 500 / 500
Output Total 1875 / 1875 2125 / 2125
Balance -315 / -315 -1885 / -1885 500 / 500
Review of Systems
-
History Source: Patient
All other systems: Reviewed and negative
Constitutional: Reports No Symptoms
EENT: Reports No Symptoms Reported
Respiratory: Reports No Symptoms
Cardiac: Reports No Symptoms
Abdomen/GI: Reports Other (patient passed flatus, )
Genitourinary: Reports No Symptoms
Musculoskeletal: Reports No Symptoms
Neuro: Reports No Symptoms
Endocrine: Reports No Symptoms
Hematologic / Lymphatic: Reports No Symptoms
Physical Exam
-
General: No Apparent Distress
HEENT: Moist Mucous Membranes
Respiratory: Clear to Auscultation
Cardiac: Regular Rhythm and S1/S2
GI: Soft and Nontender
Genito-urinary: No Costovertebral Tender
Skin: Warm
Neuro: AO x 3
Hematologic / Lymphatic: No Lymphadenopathy
Psych: Calm
--- NOTE | 2025-01-23 21:34 | W.DCSUMMARY ---
Addendum entered and electronically signed by Aj Wolff MD 01/23/25 22:27:
Read, reviewed, and agree. See same day progress note for additional details. Updated patients PCP. DC Wellbutrin and start Remeron on DC. Patient and POA amenable to DC if i am PCP. DC to [facility] today. Coordinated with facility.
Mauri Wolff MD
Original Note:
Documented by User: Jose Otero MD, Resident 01/23/25 21:56
Discharge Summary
Discharge Data
Date of Admission: 01/20/25
Date of Discharge: 01/23/25
-
Pending Results: No
Hospital Course
Discharging Physician : Dr Jose Otero
Dr Aj Kohler.
Disposition : [facility]
Primary care physician : Juhi Cortez
Principal Discharge diagnosis : Abdominal bloating with weight loss.
Chronic Discharge diagnosis : IDDM with Diabetes gastroparesis/chronic constipation.
Chronic hyponatremia managed with sodium tablet.
#Hypertension continued with carvedilol and losartan
#hyperlipidemia and ASCVD continued aspirin and atorvastatin
#DM I
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
- started LD SSI
#BPH
- continued with finasteride and tamsulosin
#anxiety/depression continued bupropion
- f/u psych as OP
#GERD continued pantoprazole
Hospital Course : On 01/20 84-year-old male presented to ER with weakness, abdominal bloating, decreased p.o. intake, weight loss for 3 weeks. Denied fever,chills,cough, shortness of breath, chest pain, urinary symptoms.
His past medical history includes hypertension, insulin-dependent diabetes mellitus, hyperlipidemia, BPH, Serrano's esophagus, hyponatremia, prostate cancer.he is legally blind. Surgical history includes herniated disc repair, retinal detachment
repair, stent in LCx, TURBT. He had insulin pump along with CGM Dexcom for his IDDM. At the course of admission diabetes was managed with sliding scale insulin regimen. 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 Patient was
discharged with home medications along with MiraLAX 17 g daily.
Important imaging findings :
Ultrasound: Cholelithiasis. There was also slight within the gallbladder. Gallbladder was distended with no evidence for gallbladder wall thickening or pericholecystic edema. Negative sonographic Purdy's sign. There was no evidence for biliary
ductal dilation.
CODE: [id number]
Discharge Plan
-
Patient Disposition: Care Home/SNF
Discharge Diagnosis/Procedures: Chronic constipation, Abdominal bloating with weight loss
Condition: Good
Diet: Diabetic, Carb Controlled
Additional Diets: Fiber rich diet
Activity: No restrictions
Driving Restrictions: As prior to admission
Bathing Restrictions: None
Referrals:
UNKNOWN - PT NOT,INTERVIEWE [Family Provider]
Prescriptions:
New
polyethylene glycol 3350 17 gram Powder In Packet
17 g PO DAILY 30 Days Qty: 30 3RF
mirtazapine [Remeron] 15 mg tablet
15 mg PO HS 30 Days Qty: 30 2RF
carvedilol 3.125 mg Tablet
3.125 mg PO BID Qty: 1 0RF
Continued
Insulin Pump [Patient's Own Insulin Pump:] 1 UNITS Pump.Resvr
0 ea SC .CONTINUOUS Qty: 0
Patient Comments:
REFILL Q 3 DAYS - WILL BRING IN EQUIPMENT. PT USES HUMALOG
latanoprost 1 DROP drops
1 drp BOTH EYES HS Qty: 0
ascorbic acid (vitamin C) [Vitamin C] 500 MG tablet
1,000 mg PO BID
fish,bora,flax oils-om3,6,9no1 [[place] 3-6-9 Complex] 400 MG capsule
1 ea PO TID
High Potency Probiotic 1 CAP capsule
1 cap PO DAILY
multivitamin with folic acid [Tab-A-Russel] 1 TABLET tablet
1 tab PO DAILY
losartan 25 MG tablet
12.5 mg PO DAILY
tamsulosin 0.4 MG capsule
0.4 mg PO HS
dorzolamide-timolol 1 DROP drops
1 drp LEFT EYE BID
finasteride 5 MG tablet
5 mg PO DAILY
Magnesium 250 MG Tablet
500 mg PO DAILY
furosemide 40 mg tablet
40 mg PO DAILY
atorvastatin 80 mg tablet
80 mg PO DAILY
fluticasone propionate 50 mcg/actuation spray,suspension
2 spray INTRANASAL DAILY
calcium carbonate [Oyster Shell Calcium 500] 500 MG tablet
1,000 mg PO DAILY
aspirin 81 MG tablet,chewable
81 mg PO DAILY
pantoprazole 40 mg tablet,delayed release (DR/EC)
40 mg PO BID
azelastine 137 mcg (0.1 %) spray,non-aerosol
2 spray INTRANASAL HS
cholecalciferol (vitamin D3) [Vitamin D3] 25 mcg (1,000 unit) Capsule
25 mcg PO DAILY
sodium chloride 1,000 mg tablet,soluble
1,000 mg PO TID
polysorbate 80-glycerin 1-1 % Drops
1 drp OPHTHALMIC (EYE) Q4 PRN (Reason: dry eye)
Discontinued
carvedilol 3.125 MG tablet
3.125 mg PO BID
bupropion HCl 150 mg tablet extended release 24 hr
150 mg PO DAILY
Discharge Orders:
Discharge Patient (As Directed); Ordered 01/23/25
Ordered By: Jose Otero
Discharge Date and Time
Discharge Date/Time: 01/23/25 16:00
Print Language: NICARAGUAN

Documented by User: Aj Wolff MD 01/23/25 22:22
Discharge Summary
Discharge Data
Date of Admission: 01/20/25
Date of Discharge: 01/23/25
Discharge Plan
-
Patient Disposition: Care Home/SNF
Discharge Diagnosis/Procedures: Chronic constipation, Abdominal bloating with weight loss
Condition: Good
Diet: Diabetic, Carb Controlled
Additional Diets: Fiber rich diet
Activity: No restrictions
Driving Restrictions: As prior to admission
Bathing Restrictions: None
Referrals:
UNKNOWN - PT NOT,INTERVIEWE [Family Provider]
Prescriptions:
New
polyethylene glycol 3350 17 gram Powder In Packet
17 g PO DAILY 30 Days Qty: 30 3RF
mirtazapine [Remeron] 15 mg tablet
15 mg PO HS 30 Days Qty: 30 2RF
carvedilol 3.125 mg Tablet
3.125 mg PO BID Qty: 1 0RF
Continued
Insulin Pump [Patient's Own Insulin Pump:] 1 UNITS Pump.Resvr
0 ea SC .CONTINUOUS Qty: 0
Patient Comments:
REFILL Q 3 DAYS - WILL BRING IN EQUIPMENT. PT USES HUMALOG
latanoprost 1 DROP drops
1 drp BOTH EYES HS Qty: 0
ascorbic acid (vitamin C) [Vitamin C] 500 MG tablet
1,000 mg PO BID
fish,bora,flax oils-om3,6,9no1 [[place] 3-6-9 Complex] 400 MG capsule
1 ea PO TID
High Potency Probiotic 1 CAP capsule
1 cap PO DAILY
multivitamin with folic acid [Tab-A-Russel] 1 TABLET tablet
1 tab PO DAILY
losartan 25 MG tablet
12.5 mg PO DAILY
tamsulosin 0.4 MG capsule
0.4 mg PO HS
dorzolamide-timolol 1 DROP drops
1 drp LEFT EYE BID
finasteride 5 MG tablet
5 mg PO DAILY
Magnesium 250 MG Tablet
500 mg PO DAILY
furosemide 40 mg tablet
40 mg PO DAILY
atorvastatin 80 mg tablet
80 mg PO DAILY
fluticasone propionate 50 mcg/actuation spray,suspension
2 spray INTRANASAL DAILY
calcium carbonate [Oyster Shell Calcium 500] 500 MG tablet
1,000 mg PO DAILY
aspirin 81 MG tablet,chewable
81 mg PO DAILY
pantoprazole 40 mg tablet,delayed release (DR/EC)
40 mg PO BID
azelastine 137 mcg (0.1 %) spray,non-aerosol
2 spray INTRANASAL HS
cholecalciferol (vitamin D3) [Vitamin D3] 25 mcg (1,000 unit) Capsule
25 mcg PO DAILY
sodium chloride 1,000 mg tablet,soluble
1,000 mg PO TID
polysorbate 80-glycerin 1-1 % Drops
1 drp OPHTHALMIC (EYE) Q4 PRN (Reason: dry eye)
Discontinued
carvedilol 3.125 MG tablet
3.125 mg PO BID
bupropion HCl 150 mg tablet extended release 24 hr
150 mg PO DAILY
Discharge Orders:
Discharge Patient (As Directed); Ordered 01/23/25
Ordered By: Jose Otero
Discharge Date and Time
Discharge Date/Time: 01/23/25 16:00
Print Language: NICARAGUAN
== END 2025-01-23 16:00 | DRG 445 ==
LOC: 4 EAST ACU 16:08
PROVIDERS: Emergency Medicine; Nurse Practitioner Family; ADMITTING PHYSICIAN Internal Medicine; ATTENDING PHYSICIAN Family Medicine; EMERGENCY PHYSICIAN Emergency Medicine; OTHER PHYSICIAN Internal Medicine; OTHER PHYSICIAN Surgery
DX: K80.20 Calculus of gallbladder without cholecystitis without obstruction (principal); E87.1 Hypo-osmolality and hyponatremia; F03.93 Unspecified dementia, unspecified severity, with mood disturbance; F03.94 Unspecified dementia, unspecified severity, with anxiety; J98.11 Atelectasis; E87.6 Hypokalemia; E10.43 Type 1 diabetes mellitus with diabetic autonomic (poly)neuropathy; R53.1 Weakness; K31.84 Gastroparesis; I25.10 Atherosclerotic heart disease of native coronary artery without angina pectoris; K59.09 Other constipation; E78.00 Pure hypercholesterolemia, unspecified; I10 Essential (primary) hypertension; H54.8 Legal blindness, as defined in USA; E83.42 Hypomagnesemia; N40.0 Benign prostatic hyperplasia without lower urinary tract symptoms; F32.A Depression, unspecified; K21.9 Gastro-esophageal reflux disease without esophagitis; H91.90 Unspecified hearing loss, unspecified ear; K22.70 Barrett's esophagus without dysplasia; Z96.41 Presence of insulin pump (external) (internal); I25.2 Old myocardial infarction; Z87.891 Personal history of nicotine dependence; Z85.46 Personal history of malignant neoplasm of prostate; Z79.4 Long term (current) use of insulin; Z98.41 Cataract extraction status, right eye; Z98.42 Cataract extraction status, left eye; Z95.5 Presence of coronary angioplasty implant and graft; Z88.1 Allergy status to other antibiotic agents; Z79.82 Long term (current) use of aspirin; Z63.4 Disappearance and death of family member; Z86.0100 Personal history of colon polyps, unspecified
CPT/HCPCS: 74022; 76700; 80048; 80053; 82962; 83690; 83735; 84132; 85025; 85027; 93005; 96361; 96365; 96375; 97163; 99285